=== PATIENT | male | born 1940 | race Caucasian/White ===

== ENCOUNTER 2017-06-13 05:45 | Day surgery (SDC) | payer MEDICARE ==
[~2017-06-13] VITALS: Ht 177.8 cm; Wt 86.2 kg
[~2017-06-13 05:45] MED LIST: ASPIR-LOW81 MG PO; ATENOLOL25 MG PO; LEVOXYL50 MCG PO; LISINOPRIL10 MG PO; LISINOPRIL20 MG PO; NORCO 5-325 TA1 EACH PO; OMEPRAZOLE20 MG PO; TERAZOSIN HCL1 MG PO; TIROSINT75 MCG PO
--- NOTE | 2017-06-13 06:53 | NUR ---
DENIES ANY NEEDS. IV PATENT.
--- NOTE | 2017-06-13 09:08 | NUR ---
06/13/17 0908 ZaraAndrew flaherty IS CHARTING O2 SAT 100% O2 REMOVED
[2017-06-13] MEDS ORDERED: PERCOCET 5-3251 EACH PO (09:58)
--- NOTE | 2017-06-13 10:59 | NUR ---
AMB TO BR DID WELL. STATES HE VOIDED, FEELS BETTER. RATES PAIN 3/10 REQ 2 PAIN PILLS AND GIVEN. HAS DRANK 2 CUPS COFFEE AND ATE JELLO. WAITING FOR TO RETURN.
--- NOTE | 2017-06-13 13:45 | NUR ---
PT RESTING IN BED, ALERT AND ORIENTED. HE IS SUPPORTED BY HIS . HAS HAD PREVIOUS HERNIA SURGERY-SEEMED PREPARED WITH FEW QUESTIONS. PT FRIENDLY AND THANKED ME FOR COMING IN. EXTENDED A BLESSING
--- NOTE | 2017-06-13 13:53 | NUR ---
2174 returned. pt dressed and ready to go. c/o nausea now wants to lye down for awhile. gave sprite per req. niecy sent patch placed on shirt with pt permission for aroma therapy for nausea.
--- NOTE | 2017-06-13 14:30 | OR ---
[facility] [address], [place] [address] Signed DATE OF PROCEDURE: 06/13/17 PREOPERATIVE DIAGNOSIS: Reducible left inguinal hernia. POSTOPERATIVE DIAGNOSIS: Reducible left indirect inguinal hernia. PROCEDURE: Left Eric onlay mesh inguinal herniorrhaphy. ESTIMATED BLOOD LOSS: None. INDICATIONS This is a 76-year-old gentleman, who I have helped with a right inguinal hernia back in 2011. 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 His left ventricular ejection fraction remain strong at 55%. He has remained quite active in his detention. [place]. He has noticed a pain and swelling in his left groin in the last 4 months. He has realized that hernia similar to what he had on the right side. He had been to his primary care provider, who referred him to me with respect to the above. In the office, I can feel a small to moderate sized but reducible inguinal hernia. I reviewed with Fred and his the nature of inguinal hernias. I gave him our hernia booklet to look at as well. We r e viewed the difference between the primary suture repair and a mesh repair. He fully understands expected intraop and postop course. There is risk to surgery including, but not limited to bleeding, infection, scarring, change in contour of the skin, damage to the nerves, ischemic orchitis, recurrent hernias and chronic pain. He had expressed understanding and wished to proceed. DESCRIPTION OF PROCEDURE I met with Fred and his in our preop area. We all agreed it was the left groin and we marked that appropriately. Fred was then taken into the operating room and placed in the supine position under general endotracheal tube anesthesia. He was given preoperative antibiotics along with subcutaneous heparin. SCDs were utilized. He was then prepped and draped in the usual sterile fashion. A standard oblique incision was made over the left groin and carried down through the tissue bluntly and with the cautery. The external oblique fascia was opened along its length and developed medially and laterally. The cord structures were elevated at the level of pubic tubercle with the help of a [place] drain. He did have some weakness to the direct space, but he clearly had fat herniating through the deep ring. There were 3 lobules of fat, more or less generally separate from the cord. They were carefully dissected free and I suture ligated all 3 at the base with one 2-0 PDS suture. The distal portion of that fat was amputated and passed off the field. The remainder of the fat retracted into the deep ring. After this, we cut a piece of flat Prolene mesh to fit his groin and we made a slit in the mesh to accommodate the cord structures at the level of deep ring. The mesh Electronically Signed By: TAMIKO MERRITT MD 06/13/17 1430 PATIENT NAME: JACOB MOJICA OPERATIVE REPORT DATE OF : 42 PHYSICIAN: TAMIKO MERRITT MD REPORT #: [id number] REPORT IS CONFIDENTIAL AND NOT TO BE RELEASED WITHOUT AUTHORIZATION [facility] [address] [place] [id number] Signed was held in place medially and laterally with running #1 Prolene suture. The ilioinguinal and iliohypogastric nerves were visualized and protected throughout the case. Local anesthetic was then copiously injected into the wound. The wound was irrigated and suctioned out until clear. The external oblique fascia was closed over the repair with the help of a running 2-0 PDS suture. The Jewels's fascia was then reapproximated with a running 4-0 Monocryl suture. The dermis was reapproximated with interrupted 4-0 subcuticular Monocryl sutures. Skin edges were reapproximated with running 6-0 fast absorbing plain gut suture. Dry gauze and tape were then applied. Fred was then awakened from his anesthesia, extubated in the OR, and taken to recovery room in stable condition. Tamiko Merritt MD AB/Modl /[id number] cc: Tariq Lyon DO Electronically Signed By: TAMIKO MERRITT MD 06/13/17 1430 PATIENT NAME: JACOB MOJICA OPERATIVE REPORT DATE OF : 42 PHYSICIAN: TAMIKO MERRITT MD REPORT #: [id number] REPORT IS CONFIDENTIAL AND NOT TO BE RELEASED WITHOUT AUTHORIZATION
--- NOTE | 2017-06-13 14:36 | NUR ---
1425 STATES LAVENDER WORKS DENIES NAUSEA. RATES PAIN 2/10. WANTS TO GO HOME.
== END 2017-06-13 14:25 | disposition home or self-care (01) ==
LOC: DS 05:45
PROVIDERS: Colon & Rectal Surgery
PROC: 0YU60JZ Supplement Left Inguinal Region with Synthetic Substitute, Open Approach (ICD-10-PCS; principal; 2017-06-13 06:45)
DX: K40.90 Unilateral inguinal hernia, without obstruction or gangrene, not specified as recurrent (principal); G47.33 Obstructive sleep apnea (adult) (pediatric); I05.9 Rheumatic mitral valve disease, unspecified; M19.90 Unspecified osteoarthritis, unspecified site; E78.5 Hyperlipidemia, unspecified; Z95.2 Presence of prosthetic heart valve; Z96.653 Presence of artificial knee joint, bilateral; Z98.890 Other specified postprocedural states; Z87.891 Personal history of nicotine dependence; Z86.010 Personal history of colon polyps; Z88.5 Allergy status to narcotic agent; Z79.899 Other long term (current) drug therapy
CPT/HCPCS: 00830; C1781; J0330; J0690; J1644; J1885; J2405; J2704; J3010; J7120

== ENCOUNTER 2018-02-24 06:55 | Day surgery (SDC) | payer MEDICARE ==
[~2018-02-24] VITALS: Ht 177.8 cm; Wt 86.2 kg
[~2018-02-24 06:55] MED LIST changes: +ALDACTONE25 MG PO; +AMBIEN10 MG PO; +CARVEDILOL25 MG PO; +LIPITOR40 MG PO; +MELOXICAM15 MG PO; +PERCOCET 5-3251 EACH PO
--- NOTE | 2018-02-24 09:25 | NUR ---
02/24/18 0925 Nora Yepez 0915 PATIENT ARRIVES TO PACU UNRESPONSIVE TO VERBAL STIMULI. RESP EVEN AND UNLABORED, ORAL AIRWAY IN PLACE, MASK AT 8 LITERS. 09 PATIENT OPENS EYES SPONTANEOUSLY, ORAL AIRWAY REMOVED. [address] CEE. MASK OFF. 97% ON ROOM AIR. PATIENT DENIES PAIN OR NAUSEA.
--- NOTE | 2018-02-24 09:53 | NUR ---
PT RESTING-ALERT, ORIENTED AND SUPPORTED BY HIS . PT SEEMED PREPARED, AND HAD FEW QUESTIONS. EXTENDED A BLESSING, WILL FOLLOW NEEDED
--- NOTE | 2018-02-24 10:03 | NUR ---
PT IS BACK TO DS FROM PACU. IS AT THE BEDSIDE. PT GIVEN COFFEE. NO OTHER C/O'S AT THIS TIME. WILL REASSESS WITHIN THE HOUR.
[2018-02-24] MEDS ORDERED: OXYCODONE HCL5 M1 PO (10:39)
[2018-02-24] MEDS ORDERED: KEFLEX500 MG PO (10:39)
--- NOTE | 2018-02-24 11:17 | NUR ---
LE 1100: PT IS ASSISTED UP OOB TO THE RESTROOM. HE AMBULATES HIMSELF BACK TO HIS ROOM. HE IS TOLD HE CAN GET DRESSED AND EDUCATED ON HOW BEST TO DO THAT. HIS IV IS REMOVED AND ASKED TO HIT HIS CALL LIGHT WHEN HIS ARRIVES SO THAT DISCHARGE INSTRUCTIONS CAN BE GIVEN.
--- NOTE | 2018-03-31 14:26 | OR ---
[facility] [address] [place], [place] [address] Signed DATE OF OPERATION: 02/24/2018 SURGEON: Nelson Cee MD PREOPERATIVE DIAGNOSIS: Septal deformity, inferior turbinate hypertrophy. POSTOPERATIVE DIAGNOSIS: Septal deformity, inferior turbinate hypertrophy. PROCEDURE: Septoplasty, cautery, bilateral inferior turbinates. ANESTHESIA: General LMA; HOPE, Liss Pacheco. HISTORY: Mr. Mojica is a 77-year-old man with chronic nasal obstruction unresponsive to appropriate medications, having difficulty using his CPAP. He was taken to the operating room for the above-mentioned procedures. OPERATIVE PROCEDURE AND FINDINGS: After informed consent, the patient was taken to the operating room and placed in supine position where general LMA anesthesia was induced. The patient and procedure were verified. The patient received preoperative intranasal oxymetazoline and intravenous Ancef. Headlight speculum exam of the nasal cavity showed a significant septal deformity on the left side, spur inferiorly on the right, obstructive on both sides. The inferior turbinates were nicely decongested. Septal deformities were corrected with 1% lidocaine with epinephrine injection. Submucosal deviated septal bone and cartilage was then excised with the [place]. The septum was medialized with a speculum. Airway was improved. The inferior turbinates were then cauterized with a long handle needle point cautery starting on the right side. The anterior portion of the inferior turbinate was reduced in size compared to the posterior portion. The cautery was performed multiple passes on the inferior turbinate starting in the most anterior portion all the way back posteriorly, medial inferior surface. Excellent shrinkage in the turbinate was obtained. Same procedure on the left inferior turbinate, same findings. Bleeding was minimal, stopped afterwards. Packing was placed, trimmed Merocel equal amount, one piece each side coated with Neosporin and tied anteriorly over a pad. The pharynx was Electronically Signed By: NELSON CEE MD 03/31/18 7554 PATIENT NAME: JACOB MOJICA OPERATIVE REPORT DATE OF : 42 REPORT #: [id number] PHYSICIAN: NELSON CEE MD PCP: ANA MENDIOLA DO REPORT IS CONFIDENTIAL AND NOT TO BE RELEASED WITHOUT AUTHORIZATION [facility] [address] [place], [place] [address], [place] [address] Signed suctioned clear of blood and secretions. The patient was then awakened, extubated, and transported to the recovery room in good condition. No complications. BLOOD LOSS: Minimal. SPECIMEN: None. DRAINS: None. PACKING: One piece of Merocel each nostril. Nelson Cee MD GC/MODL /[id number] Copies: ~ Electronically Signed By: NELSON CEE MD 03/31/18 1426 PATIENT NAME: JACOB MOJICA OPERATIVE REPORT DATE OF : 42 REPORT #: [id number] PHYSICIAN: NELSON CEE MD PCP: ANA MENDIOLA DO REPORT IS CONFIDENTIAL AND NOT TO BE RELEASED WITHOUT AUTHORIZATION
== END 2018-02-24 11:50 | disposition home or self-care (01) ==
LOC: OPS 06:55 → DS 06:55 → OPS 08:15 → DS 08:15 → OPS 11:50
PROVIDERS: Otolaryngology
PROC: 09SM0ZZ Reposition Nasal Septum, Open Approach (ICD-10-PCS; principal; 2018-02-24 08:15)
PROC: 095L7ZZ Destruction of Nasal Turbinate, Via Natural or Artificial Opening (ICD-10-PCS; 2018-02-24 08:15)
DX: J34.2 Deviated nasal septum (principal); J34.3 Hypertrophy of nasal turbinates; J32.9 Chronic sinusitis, unspecified; I10 Essential (primary) hypertension; G47.30 Sleep apnea, unspecified; Z88.5 Allergy status to narcotic agent; Z99.89 Dependence on other enabling machines and devices; Z79.82 Long term (current) use of aspirin; Z79.1 Long term (current) use of non-steroidal anti-inflammatories (NSAID); Z79.899 Other long term (current) drug therapy; Z87.891 Personal history of nicotine dependence
CPT/HCPCS: 00160; J0690; J1100; J2250; J2270; J2405; J2704; J3010; J7120

== ENCOUNTER 2021-07-12 19:48 | Inpatient (IN) | payer MEDICARE ==
[~2021-07-12] VITALS: Ht 177.8 cm; Wt 84.8 kg
[~2021-07-12 19:48] MED LIST changes: +KEFLEX500 MG PO; +OXYCODONE HCL5 M1 PO
--- NOTE | 2021-07-12 23:45 | NUR ---
REPORT RECIEVED FROM TOW MOTOR OPERATOR. PT ARRIVED VIA STRETCHER WITH CASINO ASSISTANT MANAGER. PT ON 10 L OM FOR TRANSPORT. UPON ARRIVAL PT WAS TRANSFERED TO BED FROM STRETCHER WITH HELP OF 3 RNS. UNABLE TO SELF TRANSFER DUE TO SHORTNESS OF BREATH.
--- NOTE | 2021-07-13 00:18 | NUR ---
PT ASSESSMENT COMPLETED. PT HAS WHEEZES IN ALL AIR BAE. RESPIRATIONS EVEN BUT LABORED. RR = 26 AT REST. ACCESSORY MUSCLE USE NOTED. PT SPEAKING IN FULL SENTENCES PT RUNS OUT OF BREATH AFTER SPEAKING. MEDICATIONS ADMINISTERED. IV REMDESIVIR INFUSING. PLAN OF CARE FOR EVENIGMG ESTABLISHED, CALL LIGHT WITHIN REACH. PT DENIES FURTHER NEEDS AT THIS TIME.
--- NOTE | 2021-07-13 01:03 | NUR ---
PT GIVEN A BREATHING TX AT THIS TIME. PT GIVEN VERBAL EDUCATION ABOUT RISKS INVOVLED WITH SLEEPING ON BACK. AGREEABLE TO TURN ON SIDE AT THIS TIME. CALL LIGHT EITHIN REACH. WILL CONTINUE TO MONITOR.
--- NOTE | 2021-07-13 01:53 | NUR ---
found pt standing at foot of bed, had removed gown, tele leads and oxygen. spo2 72%. pt attempting to use urinal, urinated on floor. assisted pt back to bed, reapplied 02-12L via mask, spo2 increased to mid 80'2. instructed pt to use call light, voiced understanding. side rails up x2, call light in reach, bed alarm on. RT in room to assist with oxygenation.
--- NOTE | 2021-07-13 02:13 | NUR ---
RT IN ROOM WITH THIS RN TO PLACE PT ON CPAP. PT WAS ON 15 L NONREBREATHER AND SATURATIONS REMAINED IN THE MID 80S. PT TOLERATING MASK WELL. BED ALARM IN PLACE. RT REMAINS IN ROOM AT THIS TIME.
--- NOTE | 2021-07-13 02:18 | NUR ---
CPAP SET UP BY RT. PRESSURE OF 16 FIO2 = 60%.
--- NOTE | 2021-07-13 03:54 | NUR ---
PT PULLED OF CPAP. PLACED ON 15 L NONREBREATHER AT THIS TIME AND ASSISTED PT INTO A LEFT SIDE LAYING POSITION. PT USED URINAL. SPO2 = 93% WITH RESPIRATIONS 25-30 AT REST. ASSESSMENT COMPLETED AT THIS TIME. BED ALARM IN PLACE. WILL CONTINUE TO MONITOR.
--- NOTE | 2021-07-13 04:13 | NUR ---
PT REMOVED NONREBREATHER MASK, SPO2 DOWNINTO THE 70S. PLACED BACK ON CPAP AT THIS TIME. SPO2 = 95%. BED ALARM IN PLACE. WILL CONTINUE TO MONITOR.
--- NOTE | 2021-07-13 06:07 | NUR ---
PT AWAKE IN ROOM, ASSISTED WITH REPOSITIONING. PROVIDED EDUCATION ABOUT RESPIRATORY CARE. BED ALARM IN PLACE, CALL LIGHT WITHIN REACH. WILL CONTINUE TO MONITOR.
--- NOTE | 2021-07-13 06:11 | NUR ---
PT'S DAUGHTER MARIE UPDATED ON PHONE.
--- NOTE | 2021-07-13 07:17 | EKG ---
[facility] [address] [facility] [place] [address] Signed Sinus rhythm with premature atrial complexes Left bundle branch block Abnormal ECG When compared with ECG of 19-FEB-2018 13:04, premature atrial complexes are now present T wave inversion no longer evident in Inferior leads Confirmed by JASPER KRAMER MD ([id number]) on 07/13/2021 7:17:29 AM Electronically Signed By: JASPER KRAMER MD 07/13/21 0717 PATIENT NAME: JACOB MOJICA Electrocardiogram DATE OF : 42 PHYSICIAN: JASPER KRAMER MD REPORT #: [id number] REPORT IS CONFIDENTIAL AND NOT TO BE RELEASED WITHOUT AUTHORIZATION
--- NOTE | 2021-07-13 08:00 | NUR ---
THIS BOTTOMING ROOM SUPERVISOR AND RN IN ROOM. 1PA UP TO RECLINER, TOLERATED WELL. SET UP FOR BREAKFAST. LINENS CHANGED. VITALS CHARTED, CALL LIGHT IN REACH
--- NOTE | 2021-07-13 08:05 | NUR ---
PT IS AWAKE AND ALERT X4. PT GETS UP TO THE CHAIR EASILY WITH ONE PERSON ASSIST FROM BED. PT STATES HE IS HUNGERY AND HAS BREAKFAST. PT IV SITE IS INTACT, NO REDNESS OR SWELLING NOTED, FLUSHES EASILY. PT DENIES PAIN AT THE SITE. VITALS ARE ALL WNL. PT IS ON NON-REBREATHER AND THEN MOVED TO REGULAR NASAL CANULA AT 6L SO THAT HE CAN EAT. PT TAKES PO MEDS EASILY, NO SWALLOW ISSUES NOTED.
--- NOTE | 2021-07-13 12:25 | NUR ---
PT ON PRECAUTIONS, INFORMED RN THAT I AM AVAILABLE TO VISIT BY PHONE IF PT DESIRES. ACKNOWLEDGED
[2021-07-13] MEDS ORDERED: FLUTICASONE-SA1 EAC4 INH (13:52)
[2021-07-13] MEDS ORDERED: AMLODIPINE BESYL5 MG PO (13:53)
[2021-07-13] MEDS ORDERED: VENTOLIN HFA18 GM INH (13:54)
--- NOTE | 2021-07-13 15:29 | NUR ---
PT UP SITTING ON THE EDGE OF THE BED TO VOID INTO THE URINAL. PT MOVES WITH ONLY SLIGHT ASSISTANCE. PT ABLE TO VOID 125 MLS. PT THEN TRANSFERS TO THE CHAIR WITH ONLY STANDBY ASSIST. PT SAYS "THAT FEELS BETTER". HE HAS CALL LIGHT WITHIN REACH. ALL VITALS ARE WNL.
--- NOTE | 2021-07-13 18:26 | NUR ---
MED REC COMPLETE
--- NOTE | 2021-07-13 19:30 | NUR ---
REPORT RECIEVED FROM MORENO BARNARD. CARE OF PATIENT ASSUMED AT THIS TIME.
--- NOTE | 2021-07-13 21:20 | NUR ---
PT ASSESSMENT COMPLETED. PT ASSISTED UP INTO CHAIR AT THIS TIME. GIVEN PM MEDICATIONS LUNGS SOUND CLEAR IN BOTH UPPER AIRWAYS, WITH COARSENESS AUSCULTATED IN BOTH BASES. PT SHORT OF BREATH WITHEXERTION. SPO2 =87% ON 15 L HIGH FLOW O2 AT THIS TIME. PLAN OF CARE FOR EVENING ESTABLISHED. PT'S QUESTIONS ANSWERED. CALL LIGHT WITHIN REACH. WILL CONTINUE TO MONITOR.
--- NOTE | 2021-07-13 22:03 | NUR ---
ASSISTED PT FROM RECLINER TO BED. PLACED ON CPAP AT 60% FIO2 AT THIS TIME. SPO2 = 90%. CALL LIGHT WITHIN REACH. WILL CONTINUE TO MONITOR.
--- NOTE | 2021-07-14 00:30 | NUR ---
ASSESSMENT COMPLETED. PT COMPLAINS ABOUT NOT SLEEPING. THERAPEUTIC COMMUNICATION. PT ON HIGH FLOW, LAYING ON LEFT SIDE. CALL LIGHT WITHIN REACH. DENIES FURTHER NEEDS AT THIS TIME.
--- NOTE | 2021-07-14 04:58 | NUR ---
PT CALLS FOR ICE WATER, TO CHECK ON WHERE HIS CELL PHONE IS AND TO HAVE URINAL EMPTIED. SPO2 ON HIGH FLOW CANNULA WAS 82-84%, TURNED O2 UP MORE AND SPO2 UP TO 87%, PT DENIES FEELING SOB "MY BREATHING FEELS BETTER". RR 28, HR 80.
--- NOTE | 2021-07-14 08:20 | NUR ---
THIS RN IN TO ASSESS PT AND ADMINISTER SCHEDULED MEDICATIONS. PT DENIES HAVING ANY PAIN AT THIS TIME AND DENIES THE NEED FOR COUGH MEDICATION. PT ALERT AND ORIENTED TO SELF, EVENT, BUT NOT LOCATION. PT ON HIGHFLOW NC AT 15+L, PT NOTED TO HAVE AN SPO2 OF 82-84% INITIALLY BUT BEGAN TO INCREASE BACK TO 88-90% WITH REST WHILE LAYING ON HIS SIDE. PT VITALS TAKEN, PT ASSESSED, AND SCHEDULED MEDICATIONS ADMINISTERED. PT REPORTS NO FURTHER NEEDS WHEN ASKED AND IS LAYING ON HIS RIGHT SIDE ON THE HIGHFLOW NC, SPO2 88-90%. RT IN ROOM AT THIS TIME TO ASSESS PT. NEW PLANS TO CHANGE PT TO VAPOTHERM TO IMPROVE OXYGENATION. PT REPORTS NO FURTHER NEEDS WHEN ASKED, CALL LIGHT IN REACH, BED IN LOWEST POSITION, WILL CONTINUE PLAN OF CARE.
--- NOTE | 2021-07-14 09:10 | NUR ---
RESPONDED TO PT CALL LIGHT, PT SITTING UP AT SIDE OF THE BED AWAKE AND ALERT AND STATED HE HAD SPILLED HIS URINAL ON THE BED/FLOOR. PT NOTED TO HAVE AN SPO2 OF 82-84% WHILE ON THE HIGH FLOW NC AT 15+L OF O2. PT ASSISTED IN MOVING OVER TO THE BEDSIDE RECLINER WHILE ON THE HIGH FLOW NC AND A NRB AT 15+L OF O2. PT ABLE TO SHUFFLE/PIVOT TO CHAIR WITH MINIMAL ASSISTANCE. RT IN ROOM AT THIS TIME AND PLACED PT ON THE VAPOTHERM AT 40L 100% FIO2. LINENS CHANGED AT THIS TIME. PT NOW EATING BREAKFAST ON THE VAPOTHERM, SPO2 90-92%. SCHEDULED REMDESIVIR ADMINISTERED AT THIS TIME AND IS NOW INFUSING. PT REPORTS NO FURTHER NEEDS WHEN ASKED AT THIS TIME AND IS EATING BREAKFAST. CALL LIGHT IN REACH, BED IN LOWEST POSITION, WILL CONTINUE PLAN OF CARE.
--- NOTE | 2021-07-14 09:40 | NUR ---
RESPONDED TO PT CALL LIGHT, PT IN BEDSIDE CHAIR AT THIS TIME ON THE VAPOTHERM AT 40LPM 100% FIO2. SPO2 92-95%. PT STATES HE IS FINISHED EATING BREAKFAST AND WOULD LIKE TO GO OVER TO THE BED. PT IV REMDESIVIR COMPLETED AT THIS TIME, PT SALINE LOCKED. PT ABLE TO PIVOT BACK TO THE BED AT THIS TIME ON THE VAPOTHERM. PT NOW RESTING ON THE BED, VAPOTHERM IN PLACE. PT REPORTS NO FURTHER NEEDS AT HTIS TIME WHEN ASKED, WILL CONTINUE PLAN OF CARE. CALL LIGHT IN REACH, BED IN LOWEST POSITION, PT NOW ON PHONE SPEAKING WITH HIS DAUGHTER.
--- NOTE | 2021-07-14 12:42 | NUR ---
THIS RN IN TO ASSESS PT AND TAKE VITALS. PT LAYING IN BED AT THIS TIME ON THE VAPOTHERM AT PREVIOUS SETTINGS. PT REPORTS THAT HIS BREATHING FEELS IMPROVED. PT DENIES HAVING ANY PAIN AND DENIES THE NEED FOR PRN COUGH MEDICATION. PT ABLE TO SIT UP IN BED AT THIS TIME IN ORDER TO EAT LUNCH. PT ASSESSED AT THIS TIME, VITALS TAKEN. PT REPORTS NO FURTHER NEEDS AT THIS TIME AND IS NOW EATING LUNCH. WILL CONTINUE PLAN OF CARE, CALL LIGHT IN REACH, BED IN LOWEST POSITION.
--- NOTE | 2021-07-14 14:50 | NUR ---
RESPONDED TO PT CALL LIGHT. PT LAYING IN BED AWAKE AND ALERT ON THE VAPOTHERM AT PREVIOUS SETTINGS. PT STATES HE WOULD LIKE THE TEMPERATURE IN THE ROOM LOWERED. PARALEGAL ASSISTANT NAI IN TO LOWER TEMPERATURE. PT REPORTS NO FURTHER NEEDS AT THIS TIME, WILL CONTINUE PLAN OF CARE. CALL LIGHT IN REACH, BED IN LOWEST POSITION.
--- NOTE | 2021-07-14 16:56 | NUR ---
THIS RN IN TO ASSESS PT. PT LAYING IN BED AT THIS TIME AWAKE AND ALERT ON THE VAPOTHERM AT PREVIOUS SETTINGS. PT ASSESSMENT COMPLETED AT THIS TIME. PT PROVIDED WITH WATER AT THIS TIME AND WAS THEN ASSISTED TO HIS LEFT SIDE IN A HENDERSON POSITION. PT REPORTS NO FURTHER NEEDS WHEN ASKED AT THIS TIME AND IS NOW RESTING ON HIS SIDE. CALL LIGHT IN REACH, BED IN LOWEST POSITION, WILL CONTINUE PLAN OF CARE.
--- NOTE | 2021-07-14 17:20 | NUR ---
THIS RN IN TO BRING PT HIS DINNER. PT ASSISTED IN SITTING UP IN BED AT THIS TIME. PT STILL ON VAPOTHERM, SPO2 90-94%. SETTINGS UNCHANGED. PT NOW SITTING UP IN BED EATING DINNER. PT REPORTS NO FURTHER NEEDS WHEN ASKED AT THIS TIME, WILL CONTINUE PLAN OF CARE. CALL LIGHT IN REACH, BED IN LOWEST POSITION.
--- NOTE | 2021-07-14 20:36 | NUR ---
ASSESSMENT COMPLETED. ASSISTED PT WITH ORAL CARE AND REPOSITIONING IN BED. PT REMAINS ON VAPOTHERM AT 40 L & 100% FIO2. SPO2 =93% PERCENT AT REST, IN THE HIGH 80S WITH ACTIVITY. MEDICATIONS ADMINISTERED. PLAN OF CARE FOR EVENING ESTABLISHED. ALL QUESTIONS ANSWERED. CALL LIGHT WITHIN REACH. DENIES FURTHER NEEDS AT THIS TIME.
--- NOTE | 2021-07-14 22:29 | NUR ---
pt pulled out iv, and removed all monitors and oxygen. placed back on cadiac monitor and oxygen. spo2 = 86% on vapotherm at this time. Pt reoriented. bed alarm in place. will continue to monitor
--- NOTE | 2021-07-14 23:46 | NUR ---
IN TO CHECK ON PT-HE HAS BEEN ON VAPOTHERM BUT IT HAS COME OFF SEVERAL TIMES, HE STATES "I DONT KNOW WHY THIS THING KEEPS COMING OFF" AND SATS GO DOWN TO 70'S. PLACED PT ON CPAP WITH INSTRUCTION TO CALL IF HE NEEDS TO REMOVE IT BUT ENCOURAGED HIM TO WEAR IT AT LEAST ONE HOUR AND HE AGREES. SATS UP TO 93% WITH CPAP FIO2 60%.
--- NOTE | 2021-07-15 00:30 | NUR ---
IN TO CHECK ON PT O2 SATS HAVE DROPPED, FOUND WITH CPAP OFF. WHEN ASKED WHY HE TOOK IT OFF HE STATES "IT JUST CAME OFF BY ITSELF". CPAP REPLACED, NO FURTHER NEEDS.
--- NOTE | 2021-07-15 02:15 | NUR ---
PT PULLED OFF LEADS AND OXYGEN, GOT OUT OF BED AND AMBULATED TO THE BATHROOM. THIS RN IN ROOM, ASSISTED PT BACK TO BED. SPO2 =60% WHEN PT GOT BACK IN BED. PLACED BACK ON CPAP AT THIS TIME. SPO2 =88% AFTER RECOVERING. BED ALARM IN PLACE, CALL LIGHT WITHIN REACH. WILL CONTINUE TO MONITOR.
--- NOTE | 2021-07-15 02:48 | NUR ---
PTS SATS DROPPED TO 70%, IN TO CHECK ON PT, PT REFUSING TO WEAR ANY TYPE OF OXYGEN, STATING "NO, I DONT WANT IT" SATS DOWN TO 60'S, AFTER APPROX 10 MINUTES OF REFUSAL PT AGREED TO WEAR THE HIGH FLOW NASAL CANNULA, STARTING AT 2L THEN SLOWLY TURNING UP TO 15+L PT TOLERATED. SATS SLOWLY UP TO MID 80'S. ASSISTED PT WITH POSITIONING ONTO LEFT SIDE, WARM BLANKET GIVEN AND PT LEFT TO TRY TO RELAX AND RECOVER. SHORT TIME LATER HE STARTED YELLING AND WAS FOUND WITH OXGYEN AGAIN, REMOVED IT TO TAKE A DRINK OF WATER. ALLOWED PT TO DRINK WATER, SPO2 DOWN TO 60%, THEN OXYGEN REAPPLIED PT RELUCTANTLY AGREES TO PUT IT BACK ON. PT REFUSING TO TRY CPAP OR VAPOTHERM AGAIN. LEFT PT WITH SPO2 83% TO TRY TO RELAX AND RECOVER. HR 70'S AND RR 30.
--- NOTE | 2021-07-15 03:29 | NUR ---
PT STARTED TRYING TO GET UP OUT OF BED, TALKING ABOUT CALLING HIS TO HAVE HER PICK HIM UP "I NEED TO GET OUT OF HERE," REMINDED HIM THAT HIS WAS IN THE HOSPITAL AND HE SAID "OH NOAM," THEN DEMANDED HIS CELL PHONE IN ORDER TO CALL HIS DAUGHTER MARIE. SAT WITH PT WHILE HE CALLED HIS DAUGHTER, HAD DISCUSSION WITH PT AND DAUGHTER ON SPEAKER PHONE AND UPADATED HER ON HER DAD'S REFUSING OXYGEN AND WANTING TO LEAVE, DAUGHTER ENCOURAGED HIM TO WEAR OXYGEN AND HE DID AGREE AND WAS NOT ANGRY ALTHOUGH STILL REFUSING TO WEAR CPAP. CURRENTLY WEARING HIGH FLOW CANNULA 15+L WITH SPO2 86-89%, RR 24. LEFT PT TRYING TO GET BACK TO SLEEP, STATES HE WILL CALL IF HE NEEDS ANYTHING.
--- NOTE | 2021-07-15 05:40 | NUR ---
PT HAD BEEN RESTING ON LEFT SIDE WITH VAPOTHERM IN PLACE 25/100% WITH SATS DOWN TO 80-82%. RN IN TO ROOM TO TURN UP VAPOTHERM, TURNED UP TO 30L/100% AND SPO2 UP TO 84-85%. PT AWAKENS AND BEGINS FIDGETING WITH VAPOTHERM, STATING THAT "I NEED TO GET TO [place] TO GET MY TRUCK". REORIENTED AND PT LAID BACK DOWN TO RELAX.
--- NOTE | 2021-07-15 06:20 | NUR ---
PT GOT OUT OF BED, SETTING OFF BED ALARM, REMOVED MONITOR LEADS AND OXYGEN. PT LOOKING CYANOTIC AND SOB, DEMANDING HIS PANTS SO THAT HE CAN GO HOME. "MARIE IS COMING TO PICK ME UP, IM LEAVING". FOUNDRY METALLURGIST IN TO ROOM TO HELP WITH TRYING TO GET PT TO PUT HIS OXYGEN ON. DR KRAMER CALLED, ORDER GIVEN FOR 1MG IV ATIVAN. PT EVENTUALLY AGREES TO GET BACK IN BED, ATIVAN GIVEN, OXYGEN APPLIED AND SPO2 UP TO 93%, RR 30, HR 82. BED ALARM ON.
--- NOTE | 2021-07-15 08:30 | NUR ---
SHIFT REPORT RECEIVED FROM EVON MURDOCK. ASSESSMENT COMPLETED AT THIS TIME, HE IS ALERT/ORIENTED, BUT IS FORGETFUL OF HOSPITAL SURROUNDINGS. DENIES PAIN. LUNGS CLEAR/DIM, WAS ON 15L HIGH FLOW NC, SWITCHED HIM TO VAPOTHERM 40L @ 100% AFTER RETURNING FROM BATHROOM. BOWEL TONES ACTIVE, DENIES NAUSEA. SKIN GROSSLY INTACT. IV SITE INTACT AND PATENT. PT DOES NOT WANT BREAKFAST AT THIS TIME. MEDICATIONS GIVEN PER EMAR.
--- NOTE | 2021-07-15 09:20 | NUR ---
IN TO START REMDESIVIR INFUSION. PT RESTING IN BED. HAD TAKEN OFF VAPOTHERM NASAL CANNULA AND SPO2 HAD DECREASED TO ~76%. PLACED VAPOTHERM BACK ON PT. PT STATES THAT IT WON'T STAY ON NOSE, TAPE PLACED ON TUBING TO HELP IT STAY IN PLACE. PT RECOVERED RATHER QUICKLY ONCE VAPOTHERM IN PLACE.
--- NOTE | 2021-07-15 10:20 | NUR ---
REMEDESIVIR INFUSION COMPLETED. IV SALINE LOCKED, REMAIN PATENT.
--- NOTE | 2021-07-15 10:31 | NUR ---
BED ALARM SET OFF. PT UP TO BSC WITH 1-PA WITH GUARD CAPTAIN.
--- NOTE | 2021-07-15 11:10 | NUR ---
Pt stood up to walk to bathroom and bed alarm sounded. This HEEL COVERER MACHINE OPERATOR had Pt sit back down and brought Pt bedside commode and wipes. Pt had spilled coffee on bed and on floor. While Pt was sitting on commode, this HEEL COVERER MACHINE OPERATOR cleaned up the spill and changed the linens. Pt now back in bed. Pt repeatedly took off oxygen and was confused and unsure how to put oxygen back on face.
--- NOTE | 2021-07-15 12:15 | NUR ---
BROUGHT IN PT'S LUNCH, ONLY ATE A FEW BITES AND STATED HE WAS FINISHED. PT ATTEMPTED TO REMOVE NASAL CANNULA, POSITIONED BACK ON PT AND SECURED TO CHEEKS WITH TAPE, REMINDED PT TO LEAVE ON. VAPOTHERM SETTINGS REMAIN AT 40L @ 100%. REMAINDER OF ASSESSMENT UNCHANGED. CALL LIGHT WITHIN REACH.
--- NOTE | 2021-07-15 13:44 | NUR ---
PT CALLS APPROPRIATELY FOR BSC. PT IS INDEPENDENT WITH PIVOT TO BSC AND IS CONTINENT. PT NOW BACK IN BED. CALL LIGHT WITHIN REACH. NO FURTHER NEEDS AT THIS TIME.
--- NOTE | 2021-07-15 14:49 | NUR ---
IN TO ASSIST PT UP TO CHAIR PER REQUEST. WARM BLANKETS PROVIDED. VAPOTHERM REMAINS IN PLACE AT 40L @ 100%. PT DENIES NEEDING TO USE BATHROOM AT THIS TIME. CALL LIGHT WITHIN REACH.
--- NOTE | 2021-07-15 15:45 | NUR ---
PT HAD REMOVED ALL LINES/TUBING TO GO TO BATHROOM. DESATURATED TO 67% ON ROOM AIR, FACE APPEARED BLUE IN COLOR. PT NOW BACK IN BED WITH VAPOTHERM IN PLACE AT 40L @ 100%. LUNGS ARE DIM WITH EXPIRATORY WHEEZES NOTED THROUGHOUT. REMAINDER OF ASSESSMENT UNCHANGED. BED ALARM SET FOR SAFETY.
--- NOTE | 2021-07-15 17:29 | NUR ---
PT RESTING IN BED, VAPOTHERM IN PLACE. PT DENIES NEEDS. BED ALARM REMAINS ON.
--- NOTE | 2021-07-15 17:45 | NUR ---
CALL LIGHT ANSWERED. PT UP TO BSC WITH 1-PA, VOIDED AND RETURNED TO BED. BED ALARM RESET FOR SAFETY. VAPOTHERM REMAINS AT 40L @ 100%.
--- NOTE | 2021-07-15 18:37 | NUR ---
BED ALARM SET OFF, PT STATES HE IS READY FOR BED AND WANTS HIS "SLEEPING MACHING." CPAP 14 @ 60% PLACED ON PT. PT'S OWN MASK IN ROOM, R.T. WILL COME BY LATER TO SEE IF WE ARE ABLE TO USE IT. BED ALARM RE-SET FOR SAFETY. CALL LIGHT WITHIN REACH.
--- NOTE | 2021-07-15 19:27 | NUR ---
PT PULLED CPAP OFF, IN ROOM TO DO ASSESSMENT AND REPLACE CPAP. 14 AND 60% WITH SPO2 87% AND COMING UP. PT DENIES FURTHER NEEDS. BED ALARM ON.
--- NOTE | 2021-07-15 20:00 | NUR ---
BED ALARMING. PT. FOUND STANDING AND REMOVING MONITOR CORDS AND CPAP. PT. STATES HE NEEDS TO VOID. ASSISTED WITH PUTTING ON CPAP AND TO BEDSIDE COMMODE. PT. VOIDED 100ML. LAMP DEVELOPER REPLACED. PT. BACK TO BED AND MEDS GIVEN. PT. ORIENTED TO ALL BUT DATE. HE STATES HE DOES NOT LIKE HIS NEW MEDICINE BUT COULD NOT STATE WHICH. PLACED ON HIGH FLOW O2 WHILE TAKING MEDS. GIVEN WATER. PT. ASSISTED WITH REPOSITIONING. BED ALARM ON.
--- NOTE | 2021-07-15 20:33 | NUR ---
PT GOT UP OUT OF BED SETTING OFF BED ALARM. RN IN TO ASSIST PT TO BSC AND THEN GIVE HS MEDS.
--- NOTE | 2021-07-15 21:41 | NUR ---
Attempted to modify circuit to fit his home CPAP mask but it was incomplete and thus adaption failed. Will try with another in-house face mask later.
--- NOTE | 2021-07-15 21:46 | NUR ---
RT IN TO LOOK AT PTS OWN CPAP MASK, UNABLE TO FIT MASK TO OUR MACHINE. PT HAD TAKEN CPAP OFF AND HIS SATS DROPPED TO 75% QUICKLY. RT PUT CPAP BACK ON AND SATS UP TO 92% QUICKLY. PT HAS NOT SLEPT YET.
--- NOTE | 2021-07-15 23:42 | NUR ---
PT GETTINGOUT OF BED, TAKING OFF OXYGEN. UP TO BSC ON HIGH FLOW. SATURATIONS IN THE 70S. PT NOW BACK IN BED IN LEFT SIDE LAYING POSITION. LUNGS SOUND CLEAR THE UPPER AIRWAYS AND DIM IN BOTH BASES. PT IS DISORIENTED TO DATE, TIME, AND PLACE BUT FOLLOWING COMMANDS. THIS RN REMAINS AT BEDSIDE AT THIS TIME.
--- NOTE | 2021-07-15 23:51 | NUR ---
PT SPO2 LESS THAN 85% ON 15+ L HIGH FLOW NASAL CANNULA. PT NOW BACK ON CPAP AT 60% FIO2. SPO2 =88%. BED ALARM IN PLACE. WILL CONTINUE TO MONITOR.
--- NOTE | 2021-07-16 00:08 | NUR ---
SPO2 DROPPING DOWN TO 86%, IN TO CHECK ON PT, PT RESTFUL, EYES CLOSED WEARING CPAP, FIO2 TURNED UP FROM 60% TO 75%. PT REMAINS ASLEEP, SATS UP TO 88-89%.
--- NOTE | 2021-07-16 00:46 | NUR ---
PT HAD BEEN WEARING HIGHFLOW CANNULA WITH SATS 82-86% THEN DECIDED HE DID NOT WANT TO WEAR ANY OXGYEN WITH SPO2 DOWN TO 60'S. PT INITIALLY REFUSES ANY O2 OR CPAP MASK, STATING "I NEED TO GET UP" AND "I NEED MY COFFEE FIRST". EVENTUALLY HE AGREES TO PUT ON CPAP, SPO2 UP TO 93% AND PT LYING DOWN WITH EYES CLOSED. BED ALARM IS ON.
--- NOTE | 2021-07-16 02:32 | NUR ---
PT HAS BEEN RESTFUL WEARING CPAP, SPO2 96%, RR 27 AND HR 60.
--- NOTE | 2021-07-16 02:55 | NUR ---
PT UP, SETTING OFF BED ALARM. UP TO BSC TO VOID HAD TAKEN CPAP OFF. PT AGREED TO PUT VAPOTHERM ON, ASSISTED BACK TO BED. SPO2 91%, RR 18. BED ALARM ON.
--- NOTE | 2021-07-16 03:53 | NUR ---
PT PULLED OFF VAPOTHERM AND PULSE OXIMETER. THIS RN IN ROOM, PT SPO2 AT THIS TIME 74%, PLACED ON CPAP, SPO2 BACK UP TO 88. PT UNWILLING TO TURN ON SIDES OR PRONE. BED ALARM IN PLACE, CALL LIGHT WITHIN REACH. WILL CONTINUE TO MONITOR.
--- NOTE | 2021-07-16 04:45 | NUR ---
PT GOT UP, SETTING OFF BED ALARM. BY THE TIME RN GOT IN TO HIM HE HAD REMOVED MONITOR LEADS AND OXYGEN AND WAS UP IN BATHROOM SITTING ON TOILET. ASSISTED BACK TO THE BED. HE INITIALLY WAS INSISTING ON PUTTING ON HIS SHOES ON AND LEAVING. ASKED HIM WHERE HE WAS HE STATED [place]" BUT COULD NOT GIVE ANY OTHER ANSWER. PT SAT ON EDGE OF BED ASKING FOR SHOES APPROX 5 MINUTES WITH SPO2 IN 60'S BEFORE AGREEING TO PUT OXYGEN BACK ON, VAPOTHEM PUT ON 40/100 AND SPO2 QUICKLY WENT UP TO 90'S. PT AGREES TO LIE BACK DOWN IN BED AND WAIT FOR SOME COFFEE. BED ALARM ON.
--- NOTE | 2021-07-16 05:36 | NUR ---
PT PULLED OFF ALL LEADS AND OXYGEN, THIS RN IN ROOM. PLACED BACK ON VAPOTHERM. BED ALARM IN PLACE. WILL CONTINUE TO MONITOR.
--- NOTE | 2021-07-16 07:30 | NUR ---
REPORT RECIEVED. BIOMETRICIAN IN ROOM WITH PATIENT PATIENT VERY RESTLESS.
--- NOTE | 2021-07-16 07:30 | NUR ---
PATIENT AWAKE IN CHAIR, REFUSES TO WEAR OXYGEN SUPPORT OF ANY KIND AT THIS TIME. DISORIENTED, BUT AGREED TO EASY TO REDIRECT ONCE HE HAD SOME COFFEE. 1PA BACK TO BED FROOM CHAIR. VITALS CHARTED. PATIENT RESTING QUIETLY AT THIS TIME.
--- NOTE | 2021-07-16 08:00 | NUR ---
IN BED ASSESSMENT DONE. PATIENT IS MORE CALM AND CONTROLLED AT THIS TIME FOLLOWING DIRECTIONS. ROUTINE MEDICATIONS GIVEN. DENEIS SHORTNESS OF BREATH, HOWEVER BREATHING IS LABORED. ON VAPOTHERM AT 40 L AND 100% FIO2. ENC TO LEAVE O2 IN PLACE. COOPERATIVE CURRENTLY.
--- NOTE | 2021-07-16 09:00 | NUR ---
THIS PUMPER GAUGER APPRENTICE IN ROOM TO ASSIST PATIENT BACK TO CHAIR FOR BREAKFAST. EVON CASTRO IN ROOM. LINENS CHANGED. FRESH ICE WATER PROVIDED.
--- NOTE | 2021-07-16 09:30 | NUR ---
TOOK BREAKFAST FAIR. PATIENT BACK TO BED WITH ONE PERSON ASSIST. DENIES PAIN. CONTINUES TO BE COOPERATIVE. REMAINS ON VAPOTHERM AT 100% FIO2 AND40 LITERS.
--- NOTE | 2021-07-16 11:10 | NUR ---
RESTING IN BED. NO CHANGES.
--- NOTE | 2021-07-16 13:05 | NUR ---
RESPONDED TO PT CALL LIGHT, PT STATES HIS VAPOTHERM HAD SLIPPED OFF, SPO2 AT 87% AT THIS TIME. THIS RN IN TO ROOM TO PLACE PT BACK ON THE VAPOTHERM AT PREVIOUS SETTINGS. VAPOTHERM NOW ON, SPO2 94%. PT REPORTS NO FURTHER NEEDS AT THIS TIME WHEN ASKED, CALL LIGHT IN REACH.
--- NOTE | 2021-07-16 13:45 | NUR ---
PATIENT USED CALL LIGHT TO ASK FOR ASSISTANCE BACK TO BED. VAPOTHERM IN PLACE. CALL LIGHT AND PERSONAL ITEMS IN EASY REACH
--- NOTE | 2021-07-16 18:10 | NUR ---
TOOK DINNER WELL. HAS BEEN COOPERATIVE TODAY. HAS BEEN USING CALL LIGHT APPROPRIATELY. HAS BEEN NAPPING INTERMITTENTLY THROUGH DAY.NOO CHNAGES ON O2 SOURCE.
--- NOTE | 2021-07-16 19:30 | NUR ---
report received, care of patient assumed at this time.
--- NOTE | 2021-07-16 20:13 | NUR ---
assessment completed. pt up in chair. Watching television. lungs sound coarse and fine crackles noted in right lower lobe. respiratory rate in the mid 20s. pt on vapotherm at 40L/ 100% plan of car for evening established. call light within reach. pt denies further needs at time
--- NOTE | 2021-07-16 20:18 | NUR ---
pt ambulated to bed independently on vapotherm. saturations currently in the 90s. pt turned head of conservation light three times in the last 15 minutes for various tasks, including pulling up his blanket and moving around his nasal cannula. Pt educated about infection control.call light within reach. will continue to monitor.
--- NOTE | 2021-07-16 21:03 | NUR ---
MEDICATIONS ADMINISTERED. ORAL CARE PROVIDED. PT PLACEB BACK ON CPAP AT 75% at this time. BED ALARM IN PLACE. CALL LIGHT WITHIN REACH. DENIES FURTHER NEEDS AT THIS TIME.
--- NOTE | 2021-07-16 21:50 | NUR ---
PT GOT UP TO SIDE OF BED REMOVING O2 SETTING OFF BED ALARM. ASKED WHAT HE NEEDED, HE STATES "I JUST NEED TO GET SITUATED HERE". SAT UP AT BEDSIDE ON ROOM AIR APPOX 5 MINUTES, SATS DOWN TO 70'S BEFORE HE AGREED TO LAY BACK DOWN AND PUT CPAP BACK ON. SATS UP TO 96%, TUCKED IN AND TRYING TO GO BACK TO SLEEP. BED ALARM ON.
--- NOTE | 2021-07-16 22:11 | NUR ---
DR RAMON UPDATED REGARDING PTS RESTLESSNESS. BED ALARM SET OFF AGAIN, PT STANDING UP BY CHAIR, DOES NOT KNOW WHY HE IS STANDING UP. COAXED BACK INTO BED AND CPAP PLACED.
--- NOTE | 2021-07-16 23:09 | NUR ---
PT UP TO VOID, REFUSED OXYGEN WITH ACTIVITY. BACK IN BED ON CPAP. SPO2 =83% AND GRADUALLY INCREASING AT THIS TIME.
--- NOTE | 2021-07-17 01:00 | NUR ---
PT HAS BEEN RESTFUL FOR THE LAST COUPLE HOURS, WEARING CPAP WITH SPO2 92%.
--- NOTE | 2021-07-17 03:29 | NUR ---
PT REMAINS RESTING ON CPAP, SPO2 92%, RR 22, HR 70'S. HAS NOT TRIED TO GET UP FOR APPROX 4 HOURS NOW.
--- NOTE | 2021-07-17 04:37 | NUR ---
PT WOKE UP, SET OFF BED ALRM TO GET UP TO BSC TO VOID 300ML WITH CPAP OFF AND SATS 72 ON ROOM AIR WHILE UP, THEN BACK TO BED AND CPAP REPLACED WITH SATS GOING UP TO 90%. PT DROWSY AND NOT SAYING MUCH. LAID BACK DOWN TO GO TO SLEEP, COOPERATIVE AND DOCILE. BED ALARM ON.
--- NOTE | 2021-07-17 05:29 | NUR ---
PT RESTING WITH EYES CLOSED ON CPAP, SPO2=95%. hR =50-55 AT REST. CALL LIGHT WITHIN REACH. BED ALARM IN PLACE. WILL CONTINUE TO MONITOR.
--- NOTE | 2021-07-17 08:00 | NUR ---
PATIENT RESTING IN BED, WOKE TO VOICE. 1PA TO CHAIR FOR BREAKFAST. FACE NAD HANDS WASHED, VAPOTHERM NOW ON. LINENS CHANGED. CALL LIGHT AND PERSONAL ITEMS IN EASY REACH
--- NOTE | 2021-07-17 08:00 | NUR ---
Got pt up to chair, did morning cares, put on vapotherm at 40 and 100. Denies needing to void, administered morning meds, pt ate breakfast and drank coffee. Pt states he slept well last night. Assisted SILVIA Jeronimo to tidy up room and change bed linens. Pt sat in low 90s. 0950 pt states vapotherm fell off and he couldn't get it back on. Assisted pt to replace, moved back to bed and given warm blanket. Call light in reach.
--- NOTE | 2021-07-17 08:05 | NUR ---
FIO2 DECREASED TO 50% RADHA WELL WOB OK SPO2 MAINTAINED ABOVE 90%. BBS DIMINISHED CLEAR MORE DIMINISHED IN BASES.
--- NOTE | 2021-07-17 12:39 | NUR ---
Pt sitting up at side of bed for lunch. BODY SHOP TECHNICIAN Kandace with pt. Pt maintaining o2 sat of 94 on vapotherm at 40 and 100.
--- NOTE | 2021-07-17 13:16 | NUR ---
THIS ABSORPTION AND ADSORPTION ENGINEER IN ROOM PER PATIENT REQUEST. PATIENT LYING DOWN IN BED AT THIS TIME, VAPOTHERM IN PLACE. BED SIDE TABLE AND CALL LIGHT IN REACH
--- NOTE | 2021-07-17 14:22 | NUR ---
PATIENT SELF TRANSFERED TO BSC AND SAFELY BACK TO BED. THIS SUPERVISOR VAT HOUSE NOW IN ROOM, EDUCATED PATIENT ON IMPORATNCE OF CALLING FOR ASSISTANCE BACK TO BED. PATIENT UNDERSTANDS. CALL LIGHT IN REACH. NO OTHER NEEDS AT THIS TIME
--- NOTE | 2021-07-17 16:08 | NUR ---
TRIED TO CONNECT WITH PATIENT SEVERAL TIMES TODAY. PATIENT NOT UP TO PHONE CALLS. WILL ATTEMPT AGAIN TOMORROW.
--- NOTE | 2021-07-17 16:17 | NUR ---
PT SITTIGN ON SIDE OF BED EATING ICE CREAM. DENIES CONCERNS OR NEEDS ATT. GIVEN NEW BOX OF RANDA.
--- NOTE | 2021-07-17 16:48 | NUR ---
ASSISTED PT UP TO BSC. CALL LIGHT IN REACH.
--- NOTE | 2021-07-17 17:34 | NUR ---
Pt laying in bed resting, sat up on bedside for dinner. Pt's daughter had called asking if his phone was off, when I spoke to pt he had just gotten off the phone with a daughter. Pt took another call from daughter as I left room.
--- NOTE | 2021-07-17 18:57 | NUR ---
Pt up to use BSC, then layed down with warm blanket to rest.
--- NOTE | 2021-07-17 19:30 | NUR ---
REPORT RECEIVED FROM FRANCISCO BARNARD. PT SITTING UP AT BEDSIDE REQUESTING ICE CREAM.
--- NOTE | 2021-07-17 19:45 | NUR ---
PT GIVEN CHOCOLATE ICE CREAM AND TRIDENT GUM PER REQUEST.
--- NOTE | 2021-07-17 20:20 | NUR ---
IN TO DO HS MEDS/ASSESSMENT. PT WANTING TO GO TO BED FOR THE NIGHT. LUNGS DIM WITH FEW CRACKLES IN THE BASES. ASSISTED UP TO BSC TO VOID 200ML URINE THEN INTO BED, MEDS GIVEN AND CPAP PLACED WITH SPO2 92%. BED ALARM ON.
--- NOTE | 2021-07-17 21:50 | NUR ---
PT HAS SAT UP AT THE EDGE OF THE BED 3 TIMES IN THE LAST HOUR, NO DEFINITE REASON. ASSISTED BACK TO BED.
--- NOTE | 2021-07-17 22:31 | NUR ---
PT SON UPDATED ON PT CONDITION. ALL QUESTIONS ANSWERED.
--- NOTE | 2021-07-17 22:50 | NUR ---
DR RAMON UPDATED VIA TELEPHONE ON PTS INCREASED AGGITATION, NOT KEEPING ON SUPPLEMENTAL OXYGEN AND EXITING THE BED. PLAN ESTABLISHED TO GIVEN PRN SEROQUEL AND INSTRUCTIONS TO UPDATE DR RAMON IF THE PATIENT CONTINUES TO BE AGGIATED.
--- NOTE | 2021-07-17 23:52 | NUR ---
PT HAS CONTINUED TO GET UP AND REMOVE OXYGEN APPROX EVERY 10-20 MINUTES. PRN SEROQUEL GIVEN.
--- NOTE | 2021-07-18 01:23 | NUR ---
PT HAS BEEN A BIT MORE RESTFUL, BUT STILL GETTING UP AND TAKING MASK OFF APPROX EVERY 20-30 MINUTES. WHEN HE IS ON CPAP SPO2 91%, WHEN HE TAKES IT OFF SATS ARE DOWN TO 80%.
--- NOTE | 2021-07-18 03:15 | NUR ---
pt resting on cpap. spo2 = 96% at this time. respirations even and unlabored. rr=20. call light within reach. bed alarm in place. will continue to monitor.
--- NOTE | 2021-07-18 03:40 | NUR ---
PT UP TO BEDSIDE COMMODE TO VOID, THEN BACK IN BED. ON VAPOTHERM AT 40L/ 100% FIO2 AT THIS TIME. ASSESSMENT COMPLETED. PT DENIES IN PAIN OR DISCOMFORT. BED ALARM IN PLACE, CALL LIGHT WITHIN REACH. WILL CONTINUE TO MONITOR.
--- NOTE | 2021-07-18 04:35 | NUR ---
PT TOOK OF VAPOTHERM. SATURATIONS DOWN TO 83%. PLACED BACK ON CPAP AT THIS TIME. BED ALARM IN PLACE, WILL CONTINUE TO MONITOR.
--- NOTE | 2021-07-18 06:53 | NUR ---
PT IS NOW OCCASIONALLY TAKING OFF O2, APPROX 1-2X/HOUR WITH SATS DOWN TO 70'S MOSTLY BUT SEEN LOW 59. IS MORE COOPERATIVE TONIGHT WITH A FLATTER AFFECT AND OVERALL HAS AGREED TO PUT O2 BACK ON AND GET BACK INTO BED DIRECTED INSTEAD OF REFUSING AND RESISTING HE HAS OTHER NIGHTS. HAS NOT HAD A LONG STRETCH OF SLEEP TONIGHT ALTHOUGH HE DOES SEEMED DAZED WHEN HE GETS UP AND THEN IS RESTING ONCE HE GETS BACK IN BED. BED ALARM ON.
--- NOTE | 2021-07-18 06:57 | NUR ---
PT CURRENTLY RESTING ON VAPOTHERM 40/100% WITH SPO2 OF 90%.
--- NOTE | 2021-07-18 08:00 | NUR ---
RESPONDED TO PT CALL LIGHT PT STATED HE NEEDED ASSISTANCE GETTING TO THE BEDSIDE COMMODE HE HAD TO HAVE A BM. THIS RN IN TO ASSIST PT, PT ON THE VAPOTHERM AT 40LPM 100% FIO2, SITTING AT THE SIDE OF THE BED. PT ABLE TO STAND AND PIVOT OVER TO THE BSC, PT DID NOT HAVE A BM BUT DID PERICARE AND HAD NEW ATTENDS PLACED HE STATED THEY "FELT DIRTY". PT ABLE TO GET BACK INTO BED AND SIT AT THE SIDE OF THE BED. PT DENIES FEELING LIGHTHEADED WHEN STANDING UP, SPO2 NOTED TO BE IN 85-88% RANGE, PT DID STATE HE FELT SHORT OF BREATH AT THAT TIME. PT ASSESSED AFTERWARDS AND VITALS TAKEN AT THIS TIME. PT REPORTS NO FURTHER NEEDS AT THIS TIME AND IS RESTING AT THE SIDE OF THE BED SITTING UP. CALL LIGHT IN REACH, BED IN LOWEST POSITION, WILL CONTINUE PLAN OF CARE.
--- NOTE | 2021-07-18 08:40 | NUR ---
THIS RN IN TO ADMINISTER SCHEDULED MEDICATIONS. PT STILL SITTING AT THE SIDE OF THE BED AT THIS TIME AWAKE AND ALERT ON THE VAPOTHERM NOW AT 40LPM AND 90% FIO2. FIO2 HAD BEEN TURNED DOWN BY RT. NM REPORTS GENERAL ACHES AT THIS TIME BUT DENIES THE NEED FOR COUGH MEDICATION. SCHEDULED MEDICATIONS ADMINISTERED AT THIS TIME ALONG WITH PRN TYLENOL. PT REPORTS NO FURTHER NEEDS AFTEREWARDS AND IS STILL SITTING UP AT THE SIDE OF THE BED. CALL LIGHT IN REACH, BED IN LOWEST POSITION, WILL CONTINUE PLAN OF CARE.
--- NOTE | 2021-07-18 09:27 | NUR ---
THIS RN IN TO CHECK ON PT. PT STATED HE WANTED TO MOVE OVER TO THE BEDSIDE RECLINER. PT ON THE VAPOTHERM AT THIS TIME AT 90% FIO2, SPO2 96%. PT INCREASED TO 100% FIO2 WHILE TRANSFERRING. PT NOW SITTING IN RECLINER RESTING. PT TITRATED DOWN TO 80% FIO2 ON THE VAPOTHERM SPO2 WAS 96-98%. PT NOW MAINTAINING AT 93%. DR. RAMON IN ROOM AT THIS TIME TO ASSESS PT AND UPDATE ON PLAN OF CARE. PT REPORTS NO FURTHER NEEDS AT THIS TIME, PT RESTING IN THE RECLINER ON THE VAPOTHERM, CALL LIGHT IN REACH, WILL CONTINUE PLAN OF CARE.
--- NOTE | 2021-07-18 10:24 | NUR ---
PATIENT HAS BEEN HARD TO ASSESS DUE TO SOB AND HARD HEARING BY PHONE. WAS ABLE TO SPEAK WITH TARYN AND GAINED INFORMATION FROM HER. THEY LIVE IN [place], HAVE ADULT KIDS IN THE AREA TO HELP IF NEEDED. PATIENT DOES NOT USE DME OTHER THAN CPAP. CPAP IS THROUGH [facility]. THEY DO HAVE WALKERS AND CANES AT HOME TO USE IF NEEDED. THEY HAVE STAIRS TO BEDROOMS BUT HAVE HAD NO PROBLEMS IN THE PAST. PATIENT DRIVES. IS RETIRED. STATES THEY ARE OK FOR FINANCES, BUT DOES STATE HER DIABETES MED COSTS ARE TOO HIGH. DISCUSSED OUR CHW WILL FOLLOW UP WITH THEM AFTER DISCHARGE AND PERHAPS THERE ARE SOME RESOURCES FOR THIS. DISCUSSED ALSO THERE IS HELP FOR FOOD DELIVERY ETC. FOR COVID PATIENTS AFTER DISCHARGE. SHE STATES THEY WILL BE FINE WITH CHW HELP. PLANS WILL BE FOR DISCHARGE HOME. SHE IS NOT SURE WHAT OXYGEN COMPANY TO USE, PATIENTS CPAP WITH THROUGH [facility] BUT SHE STATES HE HAS BEEN UNHAPPY WITH THEM ON OCCASION DUE TO LATE SUPPLY DELIVERY. WILL WAIT UNTIL CLOSER TO DISCHARGE TO DISCUSS AGAIN.
--- NOTE | 2021-07-18 10:50 | NUR ---
RESPONDED TO PT CALL LIGHT, PT STATED HE WANTED TO BRUSH HIS TEETH AT THIS TIME, PT ON THE VAPOTHERM AT 80% FIO2, SPO2 93%. PT PROVIDED WITH ITEMS AND IS NOW BRUSHING HIS TEETH ON THERECLINER. PT REPORTS NO FURTHER NEEDS WHEN ASKED AT THIS TIME, WILL CONTINUE PLAN OF CARE. CALL LIGHT IN REACH, PT ON THE VAPOTHERM, SETTINGS LEFT IS, SPO2 93%.
--- NOTE | 2021-07-18 11:57 | NUR ---
PATIENT ASSESSMENT COMPLETE. PATIENT IS ALERT AND ORIENTED X4. PATIENT LUNG SOUNDS ARE CLEAR IN THE UPPER LOBES AND DIMINISHED IN THE BASES WITH FINE CRACKLES. PATIENT IS ON VAPOTHERM 40 LPM AND 80% FIO2. OXYGEN SATURATION IS 90%. RR IS 22. BREATHING IS EQUAL AND UNLABORED. HEART SOUNDS ARE WNL AND IN SINUS RHYTHM. HEART RATE IS 62 BPM. URINE IS YELLOW AND CLEAR. NO BM TODAY. BOWEL SOUNDS ARE ACTIVE. PATIENT DENIES ANY PAIN OR SHORTNESS OF BREATH AT THIS TIME. PATIENT UP IN CHAIR WAITING FOR LUNCH. UPDATED ON PLAN OF CARE. NO QUESTIONS AT THIS TIME. CALL LIGHT WITHIN REACH NO FUTHER NEEDS.
--- NOTE | 2021-07-18 12:32 | NUR ---
THIS RN IN TO BRING PT HIS LUNCH. PT SITTING AT THE BEDSIDE RECLINER AWAKE AND ALERT ON 40LPM, 80% FIO2. PT LUNCH BROUGHT TO HIM, PT NOW EATING HIS LUNCH SITTING UP ON THE RECLINER. PT REPORTS NO FURTHER NEEDS AT THIS TIME WHEN ASKED, WILL CONTINUE PLAN OF CARE. CALL LIGHT IN REACH.
--- NOTE | 2021-07-18 14:20 | NUR ---
RESPONDED TO PT CALL LIGHT, PT STATED HE NEEDED TO USE THE BEDSIDE COMMODE TO VOID. THIS RN IN TO ASSIST PT. PT ON THE VAPOTHERM AWAKE AND ALERT FIO2 AT 75%. PT TURNED UP TO 100% FIO2 WHILE GETTING UP TO THE BSC TO VOID AND BACK. PT ABLE TO MAINTAIN SPO2 AT 88-90% AND DENIED LIGHTHEADEDNESS. PT STANDBYE ASSIST AND REQUIRED ONLY ASSISTANCE WITH CORD MANAGMENT. PT NOW BACK IN BED SITTING UP AT THE SIDE RESTING, FIO2 BACK TO 75%, SPO2 92%. PT REPORTS NO FURTHER NEEDS AT THIS TIME WHEN ASKED, WILL CONTINUE PLAN OF CARE. CALL LIGHT IN REACH, BED IN LOWEST POSITION.
--- NOTE | 2021-07-18 15:42 | NUR ---
PATIENT ASSESSMENT COMPLETE. MEDICATIONS GIVEN ORDERED. PATIENT IS ALERT AND ORIENTED X4. LUNG SOUNDS ARE CLEAR IN THE UPPER LOBES AND DIMINISHED IN THE LOWER LOBES WITH FINE CRACKLES. PATIENT IS ON VAPOTHERM 40 LPM AND 75 FIO2. OXYGEN SATURATION IS 90%. BREATHING IS EQUAL AND UNLABORED. DENIES FEELING SHORT OF BREATH. RR IS 22. HEART RATE IS 80 BPM AND IS IN SINUS RHYTHM. PATIENT URINE OUTPUT IS CLEAR AND YELLOW. NO BM THIS AFTERNOON BOWEL TONES ARE ACTIVE. PATIENT IS UPDATED ON THE PLAN OF CARE. NO QUESTIONS AT THIS TIME. CALL LIGHT WITHIN REACH NO FUTHER NEEDS.
--- NOTE | 2021-07-18 19:34 | NUR ---
REPORT RECIEVED. CARE OF PATIENT ASSUMED AT THIS TIME. PT RESTING ON VAPOTHERM SPO2 = 93% ON 40 L/ 80%. CALL LIGHT WITHIN REACH. BED ALARM IN PLACE. WILL CONTINUE TO MONITOR.
--- NOTE | 2021-07-18 21:50 | NUR ---
MEDICATION ADMINISTRATION COMPLETED AT THIS TIME. PT UP TO BSC TO VOID, THEN BACK IN BED. SPOE =92% ON VAPOTHERM 40L/ 80%. PT DID ORAL CARE AT THIS TIME. PLAN OF CARE ESTABLISHED FOR NIGHT. CALL LIGHT WITHIN REACH. WILL CONTINUE TO MONITOR.
--- NOTE | 2021-07-18 23:00 | NUR ---
PT REQUESTING SNACK. GIVEN PUDDING AND CRACKERS.NO LAYING BACK DOWN IN BED ON LEFT SIDE SPO2 =93% ON VAPOTHERM. CALL LIGHT WITHIN REACH. WILL CONTINUE TO MONITOR.
--- NOTE | 2021-07-19 00:36 | NUR ---
PT UP OUT OF BED AMBULATING TO BATHROOM WITHOUT OXYGEN ON. EVON DRAKE ASSISTED PT TO COMMODE AND BACK TO BED. ASSESSMENT COMPLETED BY THIS RN AT THIS TIME. LUNGS SOUND CLEAR IN UPPER AIR BAE AND DIM IN BOTH BASES. FINE CRACKLES HEARD ON DEPENDENT LEFT SIDE. SPO2 = 91% ON VAPOTHERM AT THIS TIME.CALL LIGHT WITHIN REACH. WILL CONTINUE TO MONITOR.
--- NOTE | 2021-07-19 02:00 | NUR ---
PT IN BED RESTING ON VAPOTHERM 40/100%, SPO2 96%. BED ALARM ON.
--- NOTE | 2021-07-19 04:30 | NUR ---
WILL DEFER FULL ASSESSMENT TO ALLOW PT TO SLEEP. PT REMAINS ON VAPOTHERM 40/100% SPO2 94%. BED ALARM ON.
--- NOTE | 2021-07-19 05:10 | NUR ---
PT REMAINS SLEEPING ON VAPOTHERM SPO2 90% 40/100 %
--- NOTE | 2021-07-19 08:00 | NUR ---
PATIENT IN CHAIR FOR BREAKFAST. WARM BLANKETS PROVIDED AND VITALS CHARTED. SBA TO BSC FOR VOID. TOOTHPICKS PROVIDED FROM KITCHEN PER REQUEST. VAPOTHERM IN PLACE, NO OTHER NEEDS AT THIS TIME
--- NOTE | 2021-07-19 19:30 | NUR ---
REPORT RECEIVED FROM MALIK BARNARD. PT SITTING UP AT EDGE OF BED, UNHAPPY ABOUT DINNER BEING COLD AND SIPPING ON HIS MILK.
--- NOTE | 2021-07-19 19:52 | NUR ---
PT IS ALERT AND ORIENTED X4 ALL SHIFT. PT ABLE TO SIT UP IN THE CHAIR TWO DIFFERENT TIMES, PT IS STAND BY ASSIST ONLY TO TRANSFER. PT IS ABLE TO GET SELF ON TO THE BEDSIDE COMMODE. VITALS REMAIN STABLE. PT ON VAPOTHERM ALL DAY 40L/100%. PT ABLE TO EAT ALL THREE MEALS, AND REPORTS HAVING AN APPITITE. PT DENIES NAUSEA ALL SHIFT. PT GIVEN TYLENOL ONE TIME FOR GENERLIZED ACHES AND PAINS. PT MOSTLY COOPERATIVE, SOMETIMES APPEARS TO BE EASILY FRUSTRATED WITH BEING IN THE HOSPITAL. PT WELL ABLE TO USE CALL LIGHT FOR ASSISTANCE.
--- NOTE | 2021-07-19 20:11 | NUR ---
IN TO DO HS MEDS AND ASSESSMENT. PT OVERALL IS COPPERATIVE AND CHEERFUL, BACK IN BED WATCHING A FOOTBALL GAME WEARING VAPOTHERM 40L/100% AND SPO2 90'S, RR 20. PT DENIES NEEDS AT THIS TIME, REMINDED TO CALL IF HE NEEDS TO GET UP AND HE STATES THAT HE WILL. CALL LIGHT IN REACH.
--- NOTE | 2021-07-19 22:00 | NUR ---
PT HAS GOTTEN UP 3X SO FAR SINCE TUCKING HIM IN TO SLEEP. ASKED REASON HE WAS GETTING UP AND HE STATED TO TAKE A SHOWER. ASSISTED HIM BACK TO BED EASILY, PT IS COOPERATIVE. RT IN TO EVALUATE PT, TRIED HIM ON HIGH FLOW CANNULA BUT SATS ONLY LOW 80'S SO HE PLACED HIM BACK ON VAPOTHERM 40/100%. PT CURRENTLY RESTING WITH SPO2 96%.
--- NOTE | 2021-07-19 22:50 | NUR ---
PT GOT UP FROM BED AGAIN, ASKED WHAT HE NEEDED AND HE STATED HE WANTED TO SHAVE. SET UP FOR SHAVE, HE SAT AT BEDSIDE AND SHAVED HIMSELF, REMOVED O2 TO GET UNDER THE TUBING AND HE REMAINED AT 75% ON ROOM AIR, REAPPLIED O2 AND SATS UP TO 90'S. THEN TUCKED HIM BACK INTO BED, WITH BED ALARM ON.
--- NOTE | 2021-07-20 00:43 | NUR ---
WILL DEFER ASSESSMENT FOR NOW TO ALLOW PT OPPORTUNITY TO SLEEP.
--- NOTE | 2021-07-20 01:44 | NUR ---
GOT UP TO USE URINAL AT THE BEDSIDE AND THEN GOT BACK INTO BED, LEFT HIS OXYGEN IN PLACE AND DID NOT REQUIRE ASSISTANCE.
--- NOTE | 2021-07-20 03:40 | NUR ---
PT CALLED TO URE URINAL, UP TO VOID 100ML DARK URINE WEARING NRB MASK. ASKED PT IS HE HAD BEEN ABLE TO SLEEP AND HE STATED "YEAH I THINK SO". HR INCREASED TO 120'S AND RESPIRATIONS VERY LABORED AND DROPPING O2 SATS. PT BACK IN BED, CPAP PLACED AND SATS UP TO 80'S THEN LOW 90'S. PLACED LITTLE CATHETER WITH IMMEDIATE RETURN OF 600ML KATIE URINE. PT LEFT LYING ON RIGHT SIDE, TRYING TO GET BACK TO SLEEP WEARING CPAP.
--- NOTE | 2021-07-20 04:29 | NUR ---
PT HAD CALLED BECAUSE HE REMOVED CPAP FOR UNKNOWN REASON AND WANTED HELP GETTING IT BACK ON.
--- NOTE | 2021-07-20 04:30 | NUR ---
PT CALLED BECAUSE HE WAS SWEATY AND WANTED TO SHAVE. UP TO CHAIR WHILE BED LINENS CHANGED AND THEN SHAVING SUPPLIES LEFT FOR PT TO SHAVE HIMSELF. PT REMOVED HIS OXYGEN AND SATS WERE 60%, PT DID NOT APPEAR VERY SOB. OXYGEN REAPPLIED AND SATS SLOWLY UP TO 85-90% ON VAPOTHERM 40/100%. PT ASSISTED BACK TO BED AND ASSESSMENT DONE.
--- NOTE | 2021-07-20 04:34 | NUR ---
PT CALLED FOR HELP FINDING A TV STATION. ENCOURAGED TO TRY TO SLEEP HE HAS NOT SLEPT WELL TONIGHT.
--- NOTE | 2021-07-20 06:31 | NUR ---
PT UP TO EDGE OF BED, COFFEE GIVEN PER REQUEST. WEARING VAPOTHERM 40/100 WITH SPO2 92%.
--- NOTE | 2021-07-20 08:45 | NUR ---
PATIENT AWAKE IN CHAIR, VITALS AND I&OS CHARTED. PATIENT FINISHED WITH BREAKFAST AND REQUESTS TO GET BACK IN BED. WARM BLANKET PROVIDED. CALL LIGHT AND PERSONAL ITEMS AT BEDSIDE. NO OTHER NEEDS AT THIS TIME
--- NOTE | 2021-07-20 11:20 | NUR ---
FULL REPORT GIVEN VIA PHONE TO MARTIR BARNARD ON M/S. ALL QUESTIONS ANSWERED.
--- NOTE | 2021-07-20 11:35 | NUR ---
PT TRANSFERED VIA CHAIR TO MED/SURG ROOM 120. ALL PERSONAL BELONGINGS WENT WITH THE PT.
--- NOTE | 2021-07-20 11:45 | NUR ---
Patient arrived to medical floor from CCU at this time. Patient alert and oriented x4. Patient on Vapotherm 40L/100%. Patient's respirations are non labored. Patient denies shortness of breath. Lunch brought to patient. Patient oriented to room and call light. No current needs. CPOX intact, 92% at this time. Call light within reach.
--- NOTE | 2021-07-20 15:26 | NUR ---
REPORT RECEIVED FROM CHARGE NURSE AND PT. CARE RESUMED. PT BROUGHT A FAN VAPOTHERM TUBING READJUSTED. PT. DENIES FURTHER NEEDS.
--- NOTE | 2021-07-20 15:40 | NUR ---
NO CHANGE IN DISCHARGE PLAN.
--- NOTE | 2021-07-20 15:46 | NUR ---
VAPOTHERM TITRATED TO 40L, 90%FIO2. O2 SAT. REMAINS 97%. PT. STATES HE IS DOING WELL AND DENIES FURTHER NEEDS.
--- NOTE | 2021-07-20 17:34 | NUR ---
PT. O2 SAT REMAINS GREATER THAN 95%. THIS NURSE SPOKE WITH RT AND THEY SUGGESTED TITRATING DOWN. VAPOTHERM TITRATED TO 80% FIO2 AND 40L. O2 SAT IS 95%.
--- NOTE | 2021-07-20 21:28 | NUR ---
on vapotherm 40L 80% , no c/o sob with exertion, turned and repositioned. cooperative, lungs dim and fine crackles at bases. sl LFA patent. attends in place, used urinal, voiding small amount. warm blanket and fluids given on request. call light at bedside, no c/o pain or emesis, uses call light, continues on airborne isolation precautions
--- NOTE | 2021-07-20 22:15 | NUR ---
in to provied pt ice water and crackers, no further needs at this time
--- NOTE | 2021-07-20 23:58 | NUR ---
CRACKERS AND FRESH ICE WATER GIVEN ON REQUEST. O2 VAPOTHERM, NO C/O SOB, CPOX TELE AT 93%
--- NOTE | 2021-07-21 02:34 | NUR ---
VAPOTHERM IN PLACE, NO DITRESS, RESTING, EYES CLOSED, TURNS SELF IN BED
--- NOTE | 2021-07-21 03:10 | NUR ---
awakes easily, voided, back to bed, tolerated well. on Vapotherm 40L 80%. turns and repositions self in bed
--- NOTE | 2021-07-21 04:33 | NUR ---
pt continues on airborne isolation precautions. on Vapotherm 40L 80%, tolerating well, cpox/tele#[address], sats 95% at this time. turns and repositions self, up to edge of bed to urinate, tolerated well. no cough noted this shift. Irritable at begining of shift, calmer, safety reassured. and all procedures explained prior to. SL patent.
--- NOTE | 2021-07-21 07:40 | NUR ---
THIS RN RECEIVED REPORT FROM VIJAYA BARNARD. PT APPEARS TO BE RESTING AND ON CPOX AT THIS TIME
--- NOTE | 2021-07-21 09:50 | NUR ---
THIS RN IN PTS ROOM TO GIVE PT HIS MORNING MEDS. PT STATES THAT HE IS DOING WELL AND DENIES ANY PAIN THIS AM.
--- NOTE | 2021-07-21 11:35 | NUR ---
this rn in pts room to give him his lunch. per pt request this rn cleaned pts glasses with warm water, soap and dried with sheets on bed that were clean.
--- NOTE | 2021-07-21 15:25 | NUR ---
pt asking if he has anything for bowel meds- pt reports not having a bm for 3 days- pt is passing gas.
--- NOTE | 2021-07-21 18:10 | NUR ---
this rn in pts room to give pt his evening med. pt states he is doing good and needs nothing further.
--- NOTE | 2021-07-21 19:20 | NUR ---
TODAY AROUND 1500 PATIENT GOT A BED BATH AND SHAMPOOED HIS HAIR. PUT A NEW GOWN ON HIM AND A NEW ATTEND. PUT LOTION ON HIS FEET. AND THIS MORNING HE SHAVED HIS FACE WHILE I WAS IN THERE IN CASE HE NEEDED ANY HELP.
--- NOTE | 2021-07-21 20:38 | NUR ---
on Airborne isolation precautions in place. vapotherm 40L, 60%, sats tele#5 93%, no sob, turns and repositions self in bed, up to edge of bed, voided, back to bed, tolerated well, no sob or dessation with exertion, crackers and fresh iced water given. call light at bedside, no c/o pain
--- NOTE | 2021-07-21 21:42 | NUR ---
medicated with ambien 10mg po, melatonin 3mg po per c/o insomnia, seroquesl 12.5mg po given per anxiety, was very irritable and anxious, calmed down, safety reassured. cooperative. tessalon perlmaria luz given per occcassional cough
--- NOTE | 2021-07-21 23:44 | NUR ---
RESTING, EYES CLOSED, NO DISTRESS. O2 40L 60%, TELE CPOX #5 SATS 89-90% FLUIDS AND CALL LIGHT AT BEDSIDE
--- NOTE | 2021-07-22 00:21 | NUR ---
RT HERE REASSESING VAPOTHERM/OXYGENATION NEED ON PT HE DROPPED TO 76 EARLIER, PT SOUND ASLEEP ON HIS BACK, AWKENED EASILY, TURNED TO L SIDE, AND FINGER PROBE HAD COME OFF , READJUSTED, WENT BACK UP TO 905, ON 87% AT THIS TIME, AND RT REASSESSING, PT DENIES SOB
--- NOTE | 2021-07-22 01:48 | NUR ---
resting, eys closed, vapotherm 40L,75%, sats 95%, no distress, turns and repositions self in bed
--- NOTE | 2021-07-22 05:08 | NUR ---
Pt on airborne isolation precautions, vapotherm 40L, 60% at begining of shift. early this am desatted to 76% as per tele/cpox #5, readjusted, RT notified and vapotherm setting were adjusted by RT to 40L and 75%. sats between 90-97, no distress, pt tolerating well, will continue to wean off. lungs w fine crackles, dim at bases, otherwise clear. no sob with exertion, gets up to edge of bed to void, tolerated well. Pt was irritable at begining of shift, calmed. was medicated with Ambien, seroquel and melatonin per insomnia at his requests, very effective. Has slept all this shift. tolerating liquids well, no emesis, no c.o pain
--- NOTE | 2021-07-22 07:21 | NUR ---
Report received from director vaccine RN. Patient resting in bed, tele monitor 4 monitoring oxygen.
--- NOTE | 2021-07-22 10:00 | NUR ---
resting in bed watching tv. no requests currently.
--- NOTE | 2021-07-22 12:01 | NUR ---
resting in bed, moving in bed on his own. up to side of bed to urinate. calling when needing help appropriately. watching TV. continues on vapotherm 40L flow and 75%fio2. O2 saturations 87%currently.
--- NOTE | 2021-07-22 12:07 | NUR ---
NOW O2 SATURATIONS IS UP AT 95%
--- NOTE | 2021-07-22 15:48 | NUR ---
back to bed after TOXICS PROGRAM OFFICER helping patient on commode. linens changed.
--- NOTE | 2021-07-22 17:42 | NUR ---
up to side of bed to eat dinner, IS provided and instructed on use. Able to reach 1200. Watching TV.
--- NOTE | 2021-07-22 19:15 | NUR ---
REPORT RECEIVED FROM OFFGOING RNPRERNA.
--- NOTE | 2021-07-22 20:12 | NUR ---
PT ASSESSMENT COMPLETE. PT DENIES PAIN OR NAUSEA. STATES THAT SOB IS WELL CONTROLLED. SOA 02 90%, VAPOTHERMO IN PLACE 40/75%. LUNG SOUNDS COARSE IN BILATERAL BASES. NO COUGH NOTED DURING ASSESSMENT. PT UP TO BSC AND BACK TO BED. TOLERATED WELL. IV SL, FLUSHED, WNL. ICE WATER REFILLED.PT DENIES FURTHER NEEDS. CALL LIGHT IN REACH.
--- NOTE | 2021-07-23 00:05 | NUR ---
POWER CUTTING MACHINE OPERATOR TO ROOM FOR VAPOTHERM ALARMING. TUBING KINKED, FIXED BY THIS POWER CUTTING MACHINE OPERATOR. PT DENIES FURTHER NEEDS. CALL LIGHT IN REACH.
--- NOTE | 2021-07-23 03:00 | NUR ---
BINGO WORKER TO ROOM FOR VAPOTHERM ALARMING. TUBING FOUND TO BE KINKED. SA02 86%. 40/75%. VAPOTHERM INCREASED TO 40/85%, SA02 92% ASSESSMENT COMPLETE. PT DENIES PAIN, NAUSEA, SOB. NO COUGH NOTED DURING ASSESSMENT. LUNG SOUNDS CLEAR IN UPPER LOBES, COARSE IN BILATERAL LOWER LOBES. URINAL EMPTIED. PT DENIES FURTHER NEEDS AT THIS TIME. CALL LIGHT IN REACH.
--- NOTE | 2021-07-23 05:19 | NUR ---
PT UTLIZES CALL LIGHT, REQUESTS WARM BLANKET. WARM BLANKET AND SCHEDULED MEDS TAKEN TO ROOM. SA02 84% ON 40L/85%. INCREASED TO 40L/100% SAO2 INCREASED TO 88%. RT NOTIFIED, WILL COME SEE PT. ICE WATER, AND COFFEE PROVIDED. PT DENIES FURTHER NEEDS. CALL LIGHT IN REACH.
--- NOTE | 2021-07-23 05:37 | NUR ---
PT PLACED ON NONREBREATHER @ 15LPM BY RT. SAO2 INCREASED TO 97%. PT LAID BACK DOWN IN BED AND COVERED WITH BLANKETS. FURTHER NEEDS DENIED. CALL LIGHT IN REACH.
--- NOTE | 2021-07-23 08:00 | NUR ---
PATIENT RESTING IN RED, VAPOTHERM AND NONBREATHER IN PLACE. FLOOR MOPPED, FRESH ICE WATER PROVIDED. CALL LIGHT IN REACH, NO OTHER NEEDS AT THIS TIME
--- NOTE | 2021-07-23 08:08 | NUR ---
pt resting in bed wearing non rebreather over vapo therm canula. breathing not labored pt appears relaxed. call light iin hand needed items at bedside
--- NOTE | 2021-07-23 10:35 | NUR ---
PT AWAKE IN HIS ROOM REPOSITIONS HIMSELF SITTING UP AND LAYING DOWN AT WILL. USES THE CALL LIGHT REPEATEDLY FOR NEEDS AND DETAILS. REMOVES NON REBREATHER SATS REMAIN 89 AND 90% PT IS TALKATIVE AND ENERGETIC. DENIES NEEDS AT THIS TIME.,
--- NOTE | 2021-07-23 11:15 | NUR ---
PATIENT AWAKE IN BED, VITALS AND I&OS CHARTED. ROOM TIDIED AND GARBAE EMPTIED. CALL LIGHT IN REACH
--- NOTE | 2021-07-23 13:37 | NUR ---
PATIENT AWAKE IN BED. BEDBATH COMPLETE, HAIR WASHED. GARBAGE EMPTIED. PATIENT IN VERY GOOD SPIRITS AND TALKATIVE. VITALS AND I&OS CHARTED.
--- NOTE | 2021-07-23 17:04 | NUR ---
pt continues to reposition resting in bed on different sides and sitting up at other times. agrees he's feeling pretty good, no increased sob, continues on vapo-therm.
--- NOTE | 2021-07-23 18:00 | NUR ---
PT SITTING UP ON THE SIDE OF THE BED EATING EVENING MEAL. CONTINUES ON 40L OF 02 SATS 94%
--- NOTE | 2021-07-23 19:08 | NUR ---
PATIENT LAYING ON LEFT SIDE IN BED. VITALS AND I&O'S CHARTED. CALL LIGHT IN REACH. NO FURTHER NEEDS AT THIS TIME.
--- NOTE | 2021-07-23 19:32 | NUR ---
REPORT RECEIVED FROM DAY SHIFT RN. PT UP TO BSC WITH CARPET SEWING MACHINE OPERATOR ASSIST. SpO2 88-94%. HR 80'S. NO NEEDS AT THIS TIME. CALL LIGHT IN REACH.
--- NOTE | 2021-07-23 21:45 | NUR ---
EVENING ASSESSMENT COMPLETE. SCHEDULED MEDS ADMINISTERED PER EMAR. PRN FOR PAIN ADMINISTERED FOR NECK PAIN. PRN FOR SLEEP ALSO PROVIDED. PT DENIES SOB. RESPIRATIONS EVEN. SpO2 93-97% ON VAPOTHERM AT 40L/90% FiO2. PT ABLE TO MOVE EASILY FROM LYING TO SITTING POSITIONS. WARM BLANKETS AND FRESH WATER PROVIDED. PT DENIES QUESTIONS OR CONCERNS. CALL LIGHT IN REACH.
--- NOTE | 2021-07-24 00:14 | NUR ---
PT RESTING IN BED WITH EYES CLOSED. NO APPARENT DISTRESS. SpO2 94% WITH VAPOTHERM. HR 60'S.
--- NOTE | 2021-07-24 02:07 | NUR ---
PT LYING ON LEFT SIDE RESTING WITH EYES CLOSED. RESPIRATIONS EVEN. SpO2 94% WITH VAPOTHERM AT 40L/90% FiO2 IN PLACE.
--- NOTE | 2021-07-24 04:51 | NUR ---
CALL LIGHT ANSWERED. PT REPORTS HIS GOWN/LINENS ARE WET FROM SWEAT. IN TO ASSIST CHANGE GOWN AND LINENS. WARM BLANKETS AND COFFEE PROVIDED. SCHEDULED MEDS ADMINISTERED. PT DENIES PAIN OR SOB AT THIS TIME. VAPOTHERM IN PLACE. PT BACK LYING ON LEFT SIDE IN BED. DENIES FUTHER NEEDS. CALL LIGHT IN REACH.
--- NOTE | 2021-07-24 08:44 | NUR ---
PT RESTING IN BED AGREES HE HAD A GOOD NIGHT. EATS 100% OF MORNING MEAL, STATES HE WANTS TO GO HOME. EDUCATION PROVIDED. PT SITS UP ON EDGE OF BED EASILY FOR MED PASS APPEARS STRONGER AND MUCH IMPROVED.
--- NOTE | 2021-07-24 09:47 | NUR ---
PT HAS HAD AN ACTIVE MORNING UP AND DOWN IN BED USING CALL LIGHT. REQUESTS ASSIST WITH PERSONAL CARES AT THIS TIME. MET WITH R/T TO COORDINATE CARE
--- NOTE | 2021-07-24 09:59 | NUR ---
PATIENT SITTING UP ON EDGE OF BED DOING AM CARE AND SHAVE. VITALS AND I&O'S DONE. FRESH WATER GIVEN. CALL LIGHT IN REACH. NO FURTHER NEEDS AT THIS TIME.
--- NOTE | 2021-07-24 10:00 | NUR ---
Attempted to speak with pt, he does not wish to speak with me. Per notes, plan is for pt to return to home with is .
--- NOTE | 2021-07-24 10:40 | NUR ---
dr davidson in to see this pt adjusts 02 down a little pt tolerating this fine sats remain 93%
--- NOTE | 2021-07-24 11:00 | NUR ---
Received phone message from daughter Helena, she does not feel pt can go home with as she is sick also. I attempted to return call and left a message with my phone number.
--- NOTE | 2021-07-24 14:40 | NUR ---
PATIENT IN BED RESTING AT THIS TIME. VITALS AND I&O'S CHARTED. FRESH WATER GIVEN. DINNER ORDERED. CALL LIGHT IN REACH. NO FURTHER NEEDS AT THIS TIME.
--- NOTE | 2021-07-24 15:30 | NUR ---
Was able to speak with daughter, Helena. She is stating concern as mom is ill and was recently dcd from the hospital with covid. She does not feel her mom will be able to be the cg for her dad. She is wanting to know if insurance will cover the cost of a cg and I explained this would be an out of pocket cost. Also gave info for placement to a covid SNF in [place]. Daughter does not feel pt would go there. Family are not able to provide care. [facility] name and [facility] cg site to private hire cg.
--- NOTE | 2021-07-24 15:53 | NUR ---
PT CONTINUES TO REPOSITION SELF UP AND DOWN IN BED CALLS APPROPRIATELY FOR NEEDS. SATS 94% TITRATED DOWN X2 TODAY WELL TOLERATED.
--- NOTE | 2021-07-24 19:18 | NUR ---
REPORT RECEIVED FROM DAY SHIFT RN. PT UP WITH HIGH PRESSURE KETTLE OPERATOR ASSIST TO BSC TO HAVE XL BOWEL MOVEMENT. SpO2 94%. DENIES NEEDS. WHITE BOARD UPDATED. CALL LIGHT IN REACH.
--- NOTE | 2021-07-24 22:21 | NUR ---
EVENING ASSESSMENT COMPLETE. SCHEDULED MEDS ADMINISTERED PER EMAR. PRN FOR GENERALIZED PAIN AND SLEEP ADMINISTERED. PT DENIES SOB. HAS BEEN UP AND DOWN TO THE BSC INDEPENDENTLY AND RADHA WELL. SpO2 REMAINS >90% ON 40L/55% Fi02. RESPIRATIONS EVEN. VS AND I&O OBTAINED. FRESH WATER AND WARM BLANKETS PROVIDED. PT DENIES QUESTIONS OR CONCERNS. CALL LIGHT IN REACH.
--- NOTE | 2021-07-25 01:13 | NUR ---
PT RESTING IN BED ON LEFT SIDE. EYES CLOSED. RESPIRATIONS EVEN. NO APPARENT DISTRESS. SpO2 94%.
--- NOTE | 2021-07-25 03:24 | NUR ---
PT RESTING IN BED WITH EYES CLOSED. RESPIRATIONS EVEN. SpO2 92% WITH VAPOTHERM AT 40L/55% FiO2 IN PLACE.
--- NOTE | 2021-07-25 06:49 | NUR ---
PT RESTING ON LEFT SIDE UPON ENTERING ROOM. AWAKENS EASILY. SCHEDULED MEDS ADMINISTERED. PT DENIES SOB. VAPOTHERM IN PLACE. RESPIRATIONS EVEN. SpO2 95%. COFFEE AND WARM BLANKETS PROVIDED. PT DENIES FURTHER NEEDS. CALL LIGHT IN REACH.
--- NOTE | 2021-07-25 07:51 | NUR ---
REPORT RECEIVED. PT OOB SITTING ON COMMODE FOR BM. VAPOTHERM IN PLACE. SATURATIONS 94% ON 40L 55% FiO2. DISCUSSED TITRATING OXYGEN WITH RESPITORY THERAPY. PT IS INDEPENDENT IN ROOM. CALL LIGHT IN REACH.
--- NOTE | 2021-07-25 09:03 | NUR ---
Patient vitals, I&Os are complete. RN dhruv nurse said it would be best if patient didn't get up to the chair because it may drop his oxygen level. He is currently in bed and confortable. Call light is in reach. Patient refused am morning warm wash cloth for his face and hands because he said he may want to shave later, himself.
--- NOTE | 2021-07-25 09:30 | NUR ---
ASSESSMENT COMPLETED. PT SITTING AT EDGE OF BEED. RT IN AND TITRATED VAPOTHERM TO 50% FiO2 30L. PT TOLERATING WELL WITH NO SOB. SO2 AT 93%. LUNGS WITH CRACKLES IN BASES. HEART SOUNDS REGULAR. PT INDEPENDENT WITH BSC AT BEDSIDE. SENNO HELD FOR LOOSE STOOLS. CALL LIGHT IN REACH.
--- NOTE | 2021-07-25 12:00 | NUR ---
PT SITTING UP TO EDGE OF BED FOR LUNCH. SPO2 AT 94% ON VAPOTHERM 30L 50% FiO2. TOLERATING WELL. DENIES FURTHER NEEDS.
--- NOTE | 2021-07-25 15:11 | NUR ---
Took patient's dinner order. Vitals, I&Os are complete. Patient is in bed.
--- NOTE | 2021-07-25 15:51 | NUR ---
No change in plan for discharge at this time.
--- NOTE | 2021-07-25 18:22 | NUR ---
PT AT SIDE OF BED FOR DINNER. DENIES SOB. CPOX IN PLACE SPO2 T 93%. CALL LIGHT IN REACH.
--- NOTE | 2021-07-25 18:24 | NUR ---
Patient vitals, I&Os are complete. Patient is in bed and wants to get some good sleep tonight. Call light is in reach.
--- NOTE | 2021-07-26 02:04 | NUR ---
Resting, O2 in place, tele/cpox #[address] sats 93%
--- NOTE | 2021-07-26 06:01 | NUR ---
Pt has slept all shift, on 30L/100% vapotherm, lungs with R sided wheezing and fine crackles, tele/cpox #[address], sats 93%. repositions self in bed, has voided QS. tolerating liquids well. more pleasant ths amd. lotion applied to feet at this requets. c/o food being cold everytime, charge nurse notified. Hot coffee given on request this am. went back to sleep,
--- NOTE | 2021-07-26 07:26 | NUR ---
Shift report recieved from RN Yaneth, pt resting safely in bed w/ call light in reach. 92% on Vapotherm at 30LPM and 50% FIO2.
--- NOTE | 2021-07-26 09:00 | NUR ---
PT RESTING IN BED SAFELY W/ CALL LIGHT IN REACH. MORING ASSESMENT COMPLETE AND SCHEDULED MEDS GIVEN PER PROVIDER ORDERS. PT DENIES ANY NEEDS AT THIS TIME. O2 SATS 92% ON VAPOTHERM 20LPM AND 45% FIO2.
--- NOTE | 2021-07-26 10:00 | NUR ---
PT IS RESTING IN BED SAFELY W/ CALL LIGHT IN REACH WATCHING TV, PT DENIES ANY NEEDS AT THIS TIME. 02 SATS 92% ON VAPOTHERM 20LPM AND 45%FIO2.
--- NOTE | 2021-07-26 10:33 | NUR ---
Call light is in reach and BSC is near. Patient oral care was set up. Vitals, I&Os are complete.
--- NOTE | 2021-07-26 12:00 | NUR ---
PT SITTING UP ON SIDE OF BED EATING LUNCH, PT GIVEN PRUNE JUICE UPON REQUEST. PT DENIES ANY OTHER NEEDS, 02 SATS 91% ON VAPOTHERM 20LPM AND 45%FIO2.
--- NOTE | 2021-07-26 13:36 | NUR ---
Spoke with pt's as daughter remains concerned for her attempting to care for spouse on dc. Updated pt is not ready for dc yet. states she is aware, but glad to be updated. is now off isolation. Plans on spouse dc to home. She states one daughter lives in a 5th wheel next to their house and can help them when needed.
--- NOTE | 2021-07-26 14:00 | NUR ---
PT RESTING IN BED SAFELY W/ CALL LIGHT IN REACH, WATCHING TV. PT'S 02 SAT MONITOR READJUSTED, 92% ON VAPOTHER 20LPM AND 45%FIO2. PT STATES HE HAS HAD A SOFT BM AFER DRINKING PRUNE JUICE.
--- NOTE | 2021-07-26 14:06 | NUR ---
Patient is having periods of soft stools after drinking prune juice. He says he feels much better. Call light, BSC, and wipes are in reach.
--- NOTE | 2021-07-26 16:00 | NUR ---
PT RESTING IN BED SAFELY W/ CALL LIGHT IN REACH. PT DENIES ANY NEEDS AT THIS TIME. O2 SATS 92% ON VAPOTHERM 20LPM AND 45%FIO2
--- NOTE | 2021-07-26 17:55 | NUR ---
Vitals, I&Os are done. Call light is in reach.
--- NOTE | 2021-07-26 18:09 | NUR ---
PT SITTING UP ON SIDE OF BED EATING DINNER, W/ CALL LIGHT IN REACH. PT DENIES SOB OR ANY NEEDS AT THIS TIME. 02 SATS 91% ON 20LPM AND 45%FIO2
--- NOTE | 2021-07-26 19:32 | NUR ---
in to assist pt with socks, vitals done ice water filled, no further needs at this time, pt adlib with urinal and bsc
--- NOTE | 2021-07-27 01:10 | NUR ---
desatted, rt notified, vapotherm 20L 55%, pt proning to left side, old iv dc'd rfa, new iv started by Shakira BARNARD LFA
--- NOTE | 2021-07-27 01:11 | NUR ---
NEW IV, 18G, STARTED IN LEFT FA. R FA IV DCd WNL. RN VIJAYA IN ROOM.
--- NOTE | 2021-07-27 04:07 | NUR ---
SITTING EDGE OF BED, O2 VAPOTHERM, 20L 55%, DESATS TO 85-89%, REPOSITIONED O2 PROBE, COFFEE, PRUNE JUICE, CRACKERS AND FRESH WATER GIVEN ON REQUESTS. VOIDING QS
--- NOTE | 2021-07-27 04:09 | NUR ---
pT HAS NOT SLEPT MUCH THIS SHIFT, O2 WAS INCREAED FROM VAPOTHERM 20L/45% HE DESSATED WHEN HE WAS SLEEPING LO LOW 80'S, INCREAED TO 20L/55%, TELE/CPOX #5 READING 89-95%, HAS ENCOURAGED TO DO PRONING FROM SIDE TO SIDE, LUNGS CLEAR BUT DIM AT BASES BILAT, NO SOB WITH EXERTION. ANXIOUS, "I WANT TO GO HOME AND IM TIRED OF BEING HERE" STATEMENTS, REASSURED AND CALMED DOWN. LOTION APPLIED TO FEET. COOPERATIVE. CONTINUES ON AIRBORNE ISOLATION PRECAUTIONS, HAD SOFT BMS YESTERDAY, [place] HELP AT HS, BUT SEVERAL GLASSES OF PRUNE JUICE GIVEN. NO RESULTS SIINCE BEGINIG OF SHIFT. VOIDING QS, SMALL AMOUNT USES URINAL, TOLERATING LIQUIDS AND DIET WELL. NO EMESIS. IV RFA DC'D RESTARTED ON LFA. PATENT
--- NOTE | 2021-07-27 06:20 | NUR ---
pt took a nap of 1.5 hrs, woke up and asked to be shaved. shaved face self, prune juice and coffee given on requests. fresh water given, tele#5 probe reposioned. vapothern 20L, 55%, sats 92%. voided and went back to bed, eyes closed, no distress. prones and repositions self, lotion to feet
--- NOTE | 2021-07-27 10:45 | NUR ---
Patient is wondering if there is anything for his cold sore. Patient via bed, SBA. Call light is in reach.
--- NOTE | 2021-07-27 10:49 | NUR ---
BP 86/43, p 67; asymptomatic at this time. Patient reports he is feeling better today, a&ox4, respirations non labored. Encouraged patient to drink lots of fluids, pt understanding of plan of care. Dr. Arellano notified regarding blood pressure, no new orders.
--- NOTE | 2021-07-27 12:00 | NUR ---
PT'S LUNCH ARRIVED TO FLOOR. THIS NURSE TO BEDSIDE. RT IN ROOM CHANGING PT FROM VAPOTHERM TO HIGHFLOW. PT ASSISTED UP TO CHAIR FOR LUNCH. TOLERATED WELL AT 15L TO TRANSFTER. ONCE TO CHAIR PT'S SPO2 AT 95%. RT TITRATED OXYGEN DOWN TO 12 L. SATURATIONS STILL 95% AT THIS TIME. CALL LIGHT IN REACH.
--- NOTE | 2021-07-27 14:11 | NUR ---
Patient is drinking some prune juice. Patient is sitting in the chair. Call ligt is in reach. Wipes are in bathroom and near chairside.
--- NOTE | 2021-07-27 15:47 | NUR ---
No change in CM plan today.
--- NOTE | 2021-07-27 17:43 | NUR ---
Patient doing well eating dinner at side of bed. Patient denies shortness of breath, respirations even and non labored, sp02 98% on 8L per nc. Patient states he is feeling well this evening. No current needs. Personal supplies and call light within reach.
--- NOTE | 2021-07-27 19:57 | NUR ---
Shift report received from EVON Young, pt resting in bed safely w/ call light in reach. Pt denies any needs at this time, O2 sats 92% on 8L via High Flow
--- NOTE | 2021-07-27 22:00 | NUR ---
PT SITTING UP ON SIDE OF BED W/ CALL LIGHT IN REACH. EVENING ASSESMENT COMPLETE AND SCHEDULED MEDS GIVEN PER PROVIDER ORDERS. PT DENIES ANY OTHER NEEDS AT THIS TIME. 02 SATS 92% ON 6L VIA HIGH FLOW.
--- NOTE | 2021-07-28 00:34 | NUR ---
PT RESTING SAFELY IN BED W/ CALL LIGHT IN REACH AND EYES CLOSED, RR EVEN AND UNLABORED, RT ATTEMPTED TO TITRATE PT DOWN TO 4L BUT PT'S SATS DROPPED TO LOW 80s, O2 INCREASED BACK TO 6L HIGH FLOW, PT NOW 90%.
--- NOTE | 2021-07-28 02:11 | NUR ---
Pt resting safely in bed w/ call light in reach and eyes closed, RR even and unlabored. O2 sats 90% on 6L via High Flow
--- NOTE | 2021-07-28 05:18 | NUR ---
Pt resting safely in bed w/ call light in reach and eyes closed, RR even and unlabored. O2 sats 91% on 6L via High Flow.
--- NOTE | 2021-07-28 06:40 | NUR ---
Pt sitting up on side of bed w/ call light in reach. Pt given morning medication per provider order. Pt given coffee upon request, denies any other needs at this time. O2 sats 90% on 6L via High Flow.
--- NOTE | 2021-07-28 07:35 | NUR ---
Patient resting in bed, respirations even and non labored, no notable distress. Patient on 4L oxygen per nc, sp02 95% at this time. IV fluids/abx infusing per provider order. Call light within reach.
--- NOTE | 2021-07-28 07:39 | NUR ---
Patient resting in bed, eyes closed, respirations even and non labored. Patient on 6L of oxygen per high flow nc, sp02 97%. Patient has no notable distress. Personal supplies and call light within reach.
--- NOTE | 2021-07-28 08:12 | NUR ---
Patient sitting up at edge of bed eating breakfast. Patient reports feeling well this morning, respirations even and non labored. Patient remains on 6L high flow nc, sp02 90% at this time.
--- NOTE | 2021-07-28 10:34 | NUR ---
PT IN CHAIR. VITALS AND I&0'S CHARTED. ATTEMPTED TO TIDY ROOM. BED LINENS REFRESHED. WHITE BOARD UPDATED. PT BRIGHT AND BUBBLY.
--- NOTE | 2021-07-28 12:31 | NUR ---
Patient resting in bed, eyes closed, respirations even and non labored. Patient is currently on 8L oxygen per high flow nc, sp02 96%. Patient reports he is looking forward to going home. No distress or needs. Personal supplies and call light within reach.
--- NOTE | 2021-07-28 14:51 | NUR ---
PT JUST GETTING INTO BED FROM BR. VS AND I&O'S DONE. TIDIED UP ROOM. PT SEEMS TO BE IN GOOD SPIRITS. CALL BUTTON NEXT TO PT, ALL NEEDS MET.
--- NOTE | 2021-07-28 19:43 | NUR ---
PATIENT ON 7L/NC AND O2 SATS=93% WITH HR=72 ON CPOX. PATIENT RESTING QUIETLY IN BED WATCHING TV. PATIENT HAS NO CURRENT CARE NEEDS. CALL LIGHT IS IN REACH.
--- NOTE | 2021-07-28 21:40 | NUR ---
IN TO PROVIDED PT WITH SHOWER CAP, VITALS DONE, ICE WATER PROVIDED, NO [id number] NEEDS AT THIS TIME
--- NOTE | 2021-07-28 21:40 | NUR ---
PATIENT DENIES ANY PAIN. VS ARE STABLE AND I+O HAVE BEEN RECORDED. PATIENT'S PM ASESSMENT IS COMPLETE. PATIENT TOOK 10MG AMBIEN AND 3MG MELATONIN FOR SLEEP AND HAD A TESSALON PERLE FOR COUGH. PATIENT REMAINS INDEPENDENT IN THE ROOM ON 7L/NC WITH O2 SATS IN THE LOW 90'S%. IV FLUSHES WELL AND PATIENT'S ICE WATER HAS BEEN REFILLED. WARM BLANKET GIVEN THAT WAS REQUESTED. PATIENT HAS NO OTHER CARE NEEDS AT THIS TIME. CALL LIGHT IS IN REACH.
--- NOTE | 2021-07-28 22:25 | NUR ---
IN TO PROVIDE PT WITH HIS FRUIT PLATE, NO FURTHER NEEDS AT THIS TIME
--- NOTE | 2021-07-28 23:30 | NUR ---
PATIENT LAYING ON HIS RIGHT SIDE, EYES CLOSED, O2 SATS=92% ON 7L/NC. PATIENT HAS NO CURRENT CARE NEEDS. CALL LIGHT IS IN REACH.
--- NOTE | 2021-07-29 01:17 | NUR ---
PATIENT RESTING QUIETLY SUPINE, RESPIRATIONS REGULAR AND EVEN, EYES ARE CLOSED, O2 SATS=94% ON 7L/NC HIGH FLOW, WITH HR=64 PER CPOX. NO CURRENT CARE NEEDS AND CALL LIGHT IS IN REACH.
--- NOTE | 2021-07-29 02:13 | NUR ---
PATIENT'S CPOX READINGS CAME OFF THE BOARD AND THIS RN HAD TO GO IN AND ADJUST THE CPOX PROBE ON THE PATIENT'S FINGER. PATIENT WOKE UP AND SAID HE IS DOING OK. O2 SAT=94% ON 7L/NC. PATIENT HAD NO CARE NEEDS AT THIS TIME. CALL LIGHT IS IN REACH.
--- NOTE | 2021-07-29 03:27 | NUR ---
PATIENT CALLED FOR A WARM BLANKET WHICH WAS GIVEN. PATIENT HAD NO OTHER CARE NEEDS AT THIS TIME. O2 SAT=92% ON 7L/NC WITH HR=58 ON CPOX. PATIENT HAD NO OTHER CARE NEEDS AT THIS TIME AND CALL LIGHT IS IN REACH.
--- NOTE | 2021-07-29 05:30 | NUR ---
PATIENT SAYS,"I SLEPT LIKE A LOG", VS ARE STABLE, AND AM ASSESSMENT COMPLETE. PATIENT REMAINS ON 7L/NC AND SATS ARE 97%. PATIENT GIVEN A WARM BLANKET AND TOOK HIS AM MEDICATION. PATIENT HAS NO OTHER CARE NEEDS AT THIS TIME. CALL LIGHT IS IN REACH.
--- NOTE | 2021-07-29 09:41 | NUR ---
Patient resting in bed watching tv at this time. Patient tolerated breakfast well, he denies shortness of breath at this time. SP02 reading 96% on 7L high flow nc. Patient has no distress or needs at this time. Personal supplies and call light within reach.
--- NOTE | 2021-07-29 11:10 | NUR ---
PATIENT IN BED WATCHING TV AT THIS TIME. VITALS AND I&O'S CHARTED. FRESH WATER GIVEN. CALL LIGHT IN REACH. NO FURTHER NEEDS AT THIS TIME.
--- NOTE | 2021-07-29 15:04 | NUR ---
PT IN A TALKATIVE MOOD. PT RESTING IN BED WATCHING TV. ROOM TIDIED. CALL LIGHT WITHIN REACH NO FURTHER NEEDS AT THIS TIME. ICE WATER AND SEPERATE CUP OF ICE REFRESHED.
--- NOTE | 2021-07-29 18:09 | NUR ---
PT AWAKE IN BED WATCHINIG TV. CALL LIGHT WITHIN REACH.NO FURTHER NEEDS AT THIS TIME.
--- NOTE | 2021-07-29 18:30 | NUR ---
Patient resting in bed watching tv, no distress. Patient on 6L high flow nc, sp02 92% at this time. Patient denies shortness of breath at this time. Patient reports he is looking forward to going home here soon. Patient denies pain and has no reported needs. Personal supplies and call light within reach.
--- NOTE | 2021-07-29 19:38 | NUR ---
SHIFT REPORT RECEIVED FROM EVON MCMAHAN. PATIENT RESTING QUIETLY IN BED WATCHING TV AND DENIES ANY CARE NEEDS AT THIS TIME. CALL LIGHT IS IN REACH.
--- NOTE | 2021-07-29 20:40 | NUR ---
CHECKED IN ON PATIENT TO SEE IF HE WAS GOING TO NEED ANY PRNS WITH EVENING MEDS. PATIENT ANGRY,"I'M REALLY PISSED OFF, I CALLED FOR SOME ICE WATER 30 MINUTES AGO AND NOBODY HAS BROUGHT IT YET". TRIED TO EXPLAIN TO THE PATIENT THAT EVERYONE IS BUSY AND I WOULD GET HIM SOME ICE WATER RIGHT NOW. PATIENT SAID,"NO IV SEEN ONE OF THOSE GIRLS SITTING OUT THERE JUST DOING NOTHING, THEY COULD HAVE BROUGHT IT." EXPLAINED TO THE PATIENT WE DO HAVE TO SIT AT THE DESK TO CHART AND PERFORM OTHER DUTIES, BUT PATIENT WAS NOT HEARING IT. PATIENT TOLD THIS RN, "I DON'T WANT MY PILLS NOW ITS TOO EARLY, I WON'T BE ABLE TO SLEEP LATE ENOUGH IF I TAKE THEM NOW, BRING THEM AT 10, THAT'S WHEN I TAKE THEM. INFORMED PATIENT I WOULD TRY TO BRING THEM CLOSER TO 10PM. ELVI CHARGE NURSE TOOK PATIENT IN A NEW GLASS OF ICE WATER.
--- NOTE | 2021-07-29 21:45 | NUR ---
PATIENT IN BED WATCHING TV. VITALS AND I&O'S CHARTED. RN IN ROOM. CALL LIGHT IN REACH. NO FURTHER NEEDS AT THIS TIME.
--- NOTE | 2021-07-29 21:50 | NUR ---
PATIENT APOLOGETIC FOR EARLIER OUTBURST. PATIENT IN BEETER SPIRITS AT THIS TIME. PM MEDS GIVEN ALONG WITH PRN'S FOR SLEEP AND COUGH. PATIENT REMAINS ON 6L/NC WITH O2 SATS AT 96% AND HR=76. PATIENT'S URINAL EMPTIED, ICE WATRER REFILLED, AND WARM BLANKET GIVEN. PATIENT HAS NO OTHER CARE NEEDS AT THIS TIME.
--- NOTE | 2021-07-29 23:42 | NUR ---
Patient was unable to be evaluated for discharge home with oxygen as he had received Ambien and was deeply asleep. Present vitals include oxygen at 6LPM per nasal cannula for saturation of 92% and Pulse of 72. Will alert day therapist of this need for discharge, tomorrow.
--- NOTE | 2021-07-30 00:14 | NUR ---
PATIENT RESTING QUIETLY ON HIS RIGHT SIDE, EYES CLOSED, RESPIRATIONS REGULAR AND EVEN ON 6L/NC, O2 SAT=92% WITH A HR=74 PER CPOX MONITOR. CALL LIGHT IS IN REACH.
--- NOTE | 2021-07-30 02:10 | NUR ---
PATIENT RESTING QUIETLY SUPINE, EYES CLOSED, RESPIRATIONS REGULAR AND EVEN, O2 SATS=93% ON 6L/NC, CALL LIGHT IS IN REACH. PATIENT HAS NO CURRENT CARE NEEDS.
--- NOTE | 2021-07-30 04:14 | NUR ---
PATIENT RESTING QUIETLY ON HIS LEFT SIDE, EYES CLOSED, RESPIRATIONS REGULAR AND EVEN, 02 SATS=94% ON 6L/NC, AND CALL LIGHT IS IN REACH. PATIENT HAS NO CURRENT CARE NEEDS.
--- NOTE | 2021-07-30 05:57 | NUR ---
PATIENT IS AWAKE AND REQUESTING COFFE AND CREAMERS WHICH WERE GIVEN AND ICE WATER REFILLED WELL. PATIENT TOOK AM MED AND AM ASSESSMENT COMPLETE. URINAL EMPTIED AND I+O RECORDED. VS STABLE. PATIENT REMAINS ON 6L/NC HIGH FLOW AND O2 SATS ARE 93%. PATIENT HAD NO OTHER CARE NEEDS AT THIS TIME AND CALL LIGHT IS IN REACH.
--- NOTE | 2021-07-30 07:10 | NUR ---
Report received from Octavio BARNARD. Pt resting in bed with eyes closed, respirations even and unlabored. On 6L O2 NC. No needs identified at this time. Will continue plan of care.
--- NOTE | 2021-07-30 08:12 | NUR ---
Scheduled medications administered, assessment complete. Pt sits up at bedside eating breakfast. VSS, A+O, Spo2 90%, on 6L NC O2. Independent in the room. Lungs clear, bowel tones active, pt states had BM this am. Discussed plan of care and patient is agreeable. No further needs, call light in reach.
--- NOTE | 2021-07-30 08:27 | NUR ---
PT IN CHAIR. ROOM TIDIED, WHITE BOARD UPDATED. PT DECLINED TO HAVE ICE WATER REFRESHED. CALL LIG WITHIN REACH, NO FURTHER NEEDS AT THIS TIME.
--- NOTE | 2021-07-30 08:30 | NUR ---
Notified in 829 report, pt will dc today per Dr. Arellano. Pt will need 02 on dc and she will order qualifier when she sees him.
--- NOTE | 2021-07-30 08:47 | NUR ---
PT BRIGHT AND BUBBLY THIS MORNING. ICE WATER REFRESHED, ROOM TIDIED. CALL LIGHT WITHIN REACH. NO FURTHER NEEDS AT THIS TIME.
--- NOTE | 2021-07-30 10:40 | NUR ---
PT IN A VERY CHATTY MOOD. VS AND I&O'S DONE. ATTEMPTED TO TIDY ROOM. CALL LIGHT WITHIN REACH. NO FURTHER NEEDS AT THIS TIME.
--- NOTE | 2021-07-30 11:45 | NUR ---
Called and spoke with pts . Updated he will dc today, we are awaiting 02 qualifier and plan for 02. Asked if family can transport and she states his cousing is grocery shopping and will pick him up when he is ready.
--- NOTE | 2021-07-30 11:49 | NUR ---
Rounded on patient who is resting in bed watching TV. He states he would like to be discharged today. He verbalizes understanding regarding discharge process and states that he is patient with the process.
--- NOTE | 2021-07-30 13:45 | NUR ---
02 qualifier received in my office. Face sheet, rx, order H&P, and Dc summary faxed to [facility]. Called and spoke with Kayla at [facility] to confirm they recieved chart. She will call when their diesel pile driver operator is on his way to set up 02.
--- NOTE | 2021-07-30 13:51 | NUR ---
Rounded with patient and updated on plan for discharge. No needs at this time, call light in reach.
--- NOTE | 2021-07-30 15:15 | NUR ---
Educated patient for discharge, he verbalizes understanding and all questions answered. Pt in stable condition, no needs at this time.
--- NOTE | 2021-07-30 16:00 | NUR ---
Received call from [facility] [employer] [facility] and they are awaiting auth from Medicare advantage. Called and spoke with Darian clinical safety manager from [facility] in [place]. He states managed medicares are looking for 02 requirement on 4L and since pt required 5L to recover they are awaiting this amount. Called and spoke with Edil in [place] and asked if he could walk pt on 4l for insurance auth. He states he will return. Received call from Catie Bess buggy driver. He is at [facility]'s home setting up 02. Pt may dc to home with one of their tanks after [place] see's.
--- NOTE | 2021-07-30 17:00 | NUR ---
Scheduled medications administered, patient resting in bed and awaiting family members to provide ride home. IV removed, site WNL. A+O.
--- NOTE | 2021-07-30 17:15 | NUR ---
Edil Rt returned and updated 02 qualifier after seeing pt. Updated qualifier faxed to [facility] and [employer] [facility] notified pt may dc with a [employer] tank to home.
== END 2021-07-30 18:00 | disposition home or self-care (01) | DRG 177 ==
LOC: ED 19:48 → CCU 22:52 → MS 07-20 11:35
PROVIDERS: ADMIT Internal Medicine; ATTEND Internal Medicine
PROC: 8E0ZXY6 Isolation (ICD-10-PCS; principal; 2021-07-12)
PROC: XW033E5 Introduction of Remdesivir Anti-infective into Peripheral Vein, Percutaneous Approach, New Technology Group 5 (ICD-10-PCS; 2021-07-12)
PROC: 3E0DX3Z Introduction of Anti-inflammatory into Mouth and Pharynx, External Approach (ICD-10-PCS; 2021-07-12)
DX: U07.1 COVID-19 (principal); J96.01 Acute respiratory failure with hypoxia; G93.41 Metabolic encephalopathy; J12.82 Pneumonia due to coronavirus disease 2019; J45.909 Unspecified asthma, uncomplicated; I25.10 Atherosclerotic heart disease of native coronary artery without angina pectoris; E03.9 Hypothyroidism, unspecified; I10 Essential (primary) hypertension; E78.5 Hyperlipidemia, unspecified; G47.00 Insomnia, unspecified; Z88.5 Allergy status to narcotic agent; Z96.653 Presence of artificial knee joint, bilateral; Z88.8 Allergy status to other drugs, medicaments and biological substances; Z79.899 Other long term (current) drug therapy; Z79.82 Long term (current) use of aspirin; Z87.891 Personal history of nicotine dependence; Z79.01 Long term (current) use of anticoagulants; Z95.2 Presence of prosthetic heart valve; Z98.890 Other specified postprocedural states
CPT/HCPCS: 71045; 80048; 80053; 82803; 83735; 83880; 84484; 85007; 85025; 93005; 93010; 94640; 94660; 94760; 94761; 94762; 94799; 99285-25; A9270; C9803; J1650; J2060; J7050; Q0177; U0003

== ENCOUNTER 2024-03-03 12:32 | Inpatient (IN) | payer MEDICARE ==
[~2024-03-03] VITALS: Ht 177.8 cm; Wt 89.2 kg
[~2024-03-03 12:32] MED LIST changes: +AMLODIPINE BESYL5 MG PO; +FLUTICASONE-SA1 EAC4 INH; +VENTOLIN HFA18 GM INH
[2024-03-03] MEDS ORDERED: ALBUTEROL/IPRATROPIUM 3 ML NEB INH PRN (13:30)
[2024-03-03 13:42] LABS: BASOPHILS 0.4 % (0-2); EOSINOPHILS 0.1 % (0-6); HEMATOCRIT 40.4 % (35.0-50.0); HEMOGLOBIN 13.4 g/dL (12.0-18.0); LYMPHOCYTES 7.4 % (24-44); MCH 30.5 (27-36); MCHC 33.2 g/dl (30-36); MCV 91.9 fl (81-99); MONOCYTES 12.6 % (0-12); NEUTROPHILS 79.5 % (39-80); PLATELET COUNT 207 K/uL (140-440); RDW 13.8 (10.5-15.0)
[2024-03-03 14:00] LABS: ALBUMIN 2.5 g/dL (3.4-5.0); ALBUMIN/GLOBULIN RATIO 0.63 (1.1-2.4); ANION GAP 11.2 (7-21); BUN/CREATININE RATIO 12.69 (6.0-28.6); CALCIUM 8.1 mg/dL (8.5-10.1); CREATININE, SERUM 1.26 mg/dL (0.70-1.30); MAGNESIUM 1.9 mg/dL (1.8-2.4); POTASSIUM 3.2 mmol/L (3.5-5.1); PROTEIN, TOTAL 6.5 g/dL (6.4-8.2)
[2024-03-03] MEDS ORDERED: AZITHROMYCIN/DEXTROSE 500 MG/250 ML BAG IV ONE (14:45)
[2024-03-03] MEDS ORDERED: CEFTRIAXONE/SODIUM CHLORIDE 2 GM/100 ML PIGGYBACK IV ONE (14:45)
[2024-03-03] MEDS ORDERED: AZITHROMYCIN 500 MG in DEXTROSE 5% 250 ML IV ONE (14:45)
[2024-03-03 15:15] LABS: LACTIC ACID, BLOOD 1.1 mmol/L (0.4-2.0)
[2024-03-03] MEDS ORDERED: PROCHLORPERAZINE EDISYLATE 10 MG/2 ML VIAL IV PRN (15:30)
[2024-03-03] MEDS ORDERED: ondansetron HCL 4 MG/2 ML VIAL IV PRN (15:30)
[2024-03-03] MEDS ORDERED: MAGNESIUM HYDROXIDE 30 ML UDC PO PRN (15:30)
[2024-03-03] MEDS ORDERED: ACETAMINOPHEN 500 MG TAB PO PRN (15:30)
[2024-03-03] MEDS ORDERED: ENOXAPARIN SODIUM 40 MG/0.4 ML SYR SUB-Q SCH (15:37)
[2024-03-03] MEDS ORDERED: BENZONATATE 100 MG CAP PO PRN (15:45)
[2024-03-03] MEDS ORDERED: POTASSIUM CHLORIDE 10 MEQ TABCR PO ONE (15:45)
[2024-03-03] MEDS ORDERED: predniSONE 20 MG TAB PO SCH (15:45)
[2024-03-03] MEDS ORDERED: ALBUTEROL SULFATE 0.083% 3 ML VIAL INH PRN (15:45)
[2024-03-03 15:51] VITALS: BP 144/66
[2024-03-03] MEDS ORDERED: ALBUTEROL/IPRATROPIUM 3 ML NEB INH SCH (16:00)
[2024-03-03 17:57] VITALS: BP 137/67
[2024-03-03 19:28] LABS: INFLUENZA B NAA NEGATIVE (NEGATIVE); RESPIRATORY SYNCYTIAL VIR NAA NEGATIVE (NEGATIVE)
[2024-03-03] MEDS ORDERED: BUDESONIDE 0.5 MG/2 ML VIAL INH SCH (21:00)
[2024-03-03] MEDS ORDERED: MELATONIN 3 MG TAB PO PRN (21:00)
[2024-03-03 21:49] VITALS: BP 150/65
[2024-03-04] VITALS (7 sets, daily range): BP systolic 113–157; BP diastolic 53–74
[2024-03-04 05:49] LABS: BASOPHILS 0.2 % (0-2); EOSINOPHILS 0.1 % (0-6); HEMOGLOBIN 13.1 g/dL (12.0-18.0); MCH 30.1 (27-36); MCHC 32.8 g/dl (30-36); MCV 91.8 fl (81-99); MONOCYTES 7.5 % (0-12); NEUTROPHILS 86.2 % (39-80); PLATELET COUNT 200 K/uL (140-440); RBC 4.35 M/ul (4.3-5.7); RDW 13.7 (10.5-15.0)
[2024-03-04 05:59] LABS: ANION GAP 10.8 (7-21); BUN/CREATININE RATIO 17.77 (6.0-28.6); CALCIUM 8.7 mg/dL (8.5-10.1); CREATININE, SERUM 0.9 mg/dL (0.70-1.30); POTASSIUM 3.8 mmol/L (3.5-5.1)
[2024-03-04] MEDS ORDERED: FUROSEMIDE 40 MG/4 ML VIAL IV ONE (08:00)
[2024-03-04] MEDS ORDERED: AMLODIPINE BESY10 MG PO (08:09)
[2024-03-04] MEDS ORDERED: CARVEDILOL6.25 MG PO (08:12)
[2024-03-04] MEDS ORDERED: PANTOPRAZOLE SODIUM 40 MG TABEC PO SCH (09:00)
[2024-03-04] MEDS ORDERED: ATORVASTATIN 40 MG TAB PO SCH (09:00)
[2024-03-04] MEDS ORDERED: CEFTRIAXONE/SODIUM CHLORIDE 1 GM/100 ML PIGGYBACK IV SCH (09:00)
[2024-03-04] MEDS ORDERED: carvediloL 6.25 MG TAB PO SCH ×2 (09:00→21:00)
[2024-03-04] MEDS ORDERED: AZITHROMYCIN 250 MG TAB PO SCH (09:00)
[2024-03-04] MEDS ORDERED: ASPIRIN 81 MG TABEC PO SCH (09:00)
[2024-03-04] MEDS ORDERED: PHARMACY RENAL DOSE ADJUSTMENT 1 DOSE MISC PO SCH (12:00)
--- NOTE | 2024-03-04 12:00 | EKG ---
[facility] [address] [place], [place] [address] Signed Ventricular-paced rhythm Abnormal ECG Confirmed by Anita Bagley ([id number]) on 03/04/2024 11:59:58 AM Electronically Signed By: ANITA BAGLEY MD 03/04/24 1200 PATIENT NAME: JACOB MOJICA III Electrocardiogram DATE OF : 42 PHYSICIAN: ANITA BAGLEY MD REPORT #: [id number] REPORT IS CONFIDENTIAL AND NOT TO BE RELEASED WITHOUT AUTHORIZATION
[2024-03-04] MEDS ORDERED: ERYTHROMYCIN 1 GM TUBE OU SCH (14:00)
[2024-03-04] MEDS ORDERED: ZOLPIDEM TARTRATE 5 MG TAB PO SCH (21:00)
[2024-03-05 01:24] VITALS: BP 149/80
[2024-03-05 05:36] VITALS: BP 121/68
[2024-03-05 05:37] LABS: BASOPHILS 0.1 % (0-2); EOSINOPHILS 0.2 % (0-6); HEMATOCRIT 39.9 % (35.0-50.0); HEMOGLOBIN 13.3 g/dL (12.0-18.0); LYMPHOCYTES 7.8 % (24-44); MCH 30.5 (27-36); MCHC 33.4 g/dl (30-36); MCV 91.3 fl (81-99); MONOCYTES 7.2 % (0-12); NEUTROPHILS 84.7 % (39-80); PLATELET COUNT 263 K/uL (140-440); RBC 4.37 M/ul (4.3-5.7); RDW 13.7 (10.5-15.0)
[2024-03-05 05:48] LABS: ANION GAP 3.5 (7-21); BUN/CREATININE RATIO 25.42 (6.0-28.6); CALCIUM 8.4 mg/dL (8.5-10.1); CREATININE, SERUM 1.18 mg/dL (0.70-1.30); POTASSIUM 3.5 mmol/L (3.5-5.1)
[2024-03-05] MEDS ORDERED: LEVOTHYROXINE SODIUM 50 MCG TAB PO SCH (06:00)
[2024-03-05] MEDS ORDERED: AZITHROMYCIN250 MG PO (08:10)
[2024-03-05] MEDS ORDERED: BENZONATATE100 MG PO (08:10)
[2024-03-05] MEDS ORDERED: CEFDINIR300 MG PO (08:10)
[2024-03-05] MEDS ORDERED: ERYTHROMYCIN1 GM OU (08:14)
[2024-03-05 09:13] VITALS: BP 129/72
[2024-03-05 10:36] VITALS: BP 147/68
[2024-03-05 11:31] VITALS: BP 147/68
== END 2024-03-05 10:53 | disposition home or self-care (01) | DRG 193 ==
LOC: ED 12:32 → MS 14:44
PROVIDERS: Emergency Medicine; ADMIT Family Medicine; ATTEND Family Medicine
DX: J18.9 Pneumonia, unspecified organism (principal); J96.01 Acute respiratory failure with hypoxia; J44.0 Chronic obstructive pulmonary disease with (acute) lower respiratory infection; H10.89 Other conjunctivitis; K21.9 Gastro-esophageal reflux disease without esophagitis; G47.33 Obstructive sleep apnea (adult) (pediatric); G47.00 Insomnia, unspecified; I10 Essential (primary) hypertension; B96.89 Other specified bacterial agents as the cause of diseases classified elsewhere; Z95.2 Presence of prosthetic heart valve; Z87.891 Personal history of nicotine dependence; Z95.0 Presence of cardiac pacemaker; Z99.89 Dependence on other enabling machines and devices; Z98.890 Other specified postprocedural states; Z96.653 Presence of artificial knee joint, bilateral; Z88.8 Allergy status to other drugs, medicaments and biological substances; Z79.899 Other long term (current) drug therapy; Z79.890 Hormone replacement therapy; Z79.51 Long term (current) use of inhaled steroids; Z79.82 Long term (current) use of aspirin; Z88.5 Allergy status to narcotic agent
CPT/HCPCS: 36415; 71045; 80048; 80053; 83605; 83735; 83880; 84484; 85025; 87502; 93005; 93010; 93306; 94640; 94667; 94668; 94760; 94762; 97161; A9270; J0456; J0696; J1650; J1940; J7512; U0002